=== PATIENT | male | born 1945 | race Caucasian/White ===

== ENCOUNTER → 2018-02-28 09:10 | Outpatient (CLI) | payer MEDICARE, BC, SELFPAY ==
--- NOTE | 2018-02-28 09:03 | DI.REPORT_ITS ---
SYMPTOM/DIAGNOSIS: PAIN LEFT SHOULDER: No priors. There is mild spurring seen at the lateral aspect of the acromion. The glenohumeral joint appears well maintained. The bones are intact and normally mineralized. The soft tissues are unremarkable. IMPRESSION: Mild degenerative changes of the left shoulder
== END ==
PROVIDERS: PCP Family Medicine; Visit Provider Orthopaedic Surgery
DX: M75.82 Other shoulder lesions, left shoulder (principal); M25.512 Pain in left shoulder; M19.012 Primary osteoarthritis, left shoulder
CPT/HCPCS: 73030; 99214

== ENCOUNTER → 2018-03-14 09:45 | Outpatient (CLI) | payer MEDICARE, BC, SELFPAY | PROVIDERS: PCP Family Medicine; Visit Provider Orthopaedic Surgery | DX: M75.81 Other shoulder lesions, right shoulder (principal); M75.82 Other shoulder lesions, left shoulder; M25.512 Pain in left shoulder; M25.511 Pain in right shoulder | CPT/HCPCS: 20610; 99214; J1040 ==

== ENCOUNTER → 2018-04-13 11:11 | Outpatient (BNVA) | payer MEDICARE, BC, SELFPAY | PROVIDERS: PCP Family Medicine; Referring Provider Family Medicine; Visit Provider Orthopaedic Surgery | DX: M25.511 Pain in right shoulder (principal) | CPT/HCPCS: 20610; 99212; J1040 ==

== ENCOUNTER 2018-04-13 12:19 | Outpatient (CLI) | payer MEDICARE, BC, SELFPAY ==
[2018-04-13 12:49] LABS: Abs Immature Grans 0.05 k/cumm (0.0-0.09); Absolute Basophil Count 0.03 k/cumm (0.0-0.2); Absolute Eosinophil Count 0.34 k/cumm (0.0-0.7); Absolute Lymphocyte Count 1.03 k/cumm (1.2-3.4); Absolute Monocyte Count 0.73 k/cumm (0.11-0.7); Absolute Neutrophil Count 5.02 k/cumm (1.2-6.7); Basophils % 0.4; Eosinophils % 4.7; HGB 13.6 g/dL (13.5-17.5); Immature Grans % 0.7; Lymphocytes % 14.3; Mean Corp. HGB Concentration 32.4 g/dL (32.0-36.0); Mean Corpuscular Hemoglobin 27.8 pg (27.0-33.0); Mean Corpuscular Volume 85.9 fL (80-95); Mean Platelet Volume 10.2 fL (8.0-11.0); Monocytes % 10.1; Neutrophils % 69.8; Platelet Count 208 x1000/uL (130-400); RBC 4.89 m/cumm (4.50-6.00); RBC Distribution Width 14.2 % (11.8-14.1)
[2018-04-13 13:23] LABS: ESR 47 MM/HR (1-20)
== END 2018-04-13 12:39 ==
PROVIDERS: PCP Family Medicine; Visit Provider Orthopaedic Surgery
DX: M79.1 Myalgia (principal)
CPT/HCPCS: 20610; 36415; 85652; 99212; 85025; 86140; J1040

== ENCOUNTER 2018-05-19 10:52 | Outpatient (REF) | payer MEDICARE, BC, SELFPAY ==
[2018-05-19 21:18] LABS: ALT 33 U/L (12-78); AST 19 U/L (15-37); Alkaline Phosphatase 132 U/L (46-116); Anion Gap 10.7 mmol/L (3-11); BUN 13 mg/dL (7-18); Bilirubin, Total 0.6 mg/dL (0.2-1.0); C-Reactive Protein 0.64 mg/dL (0.0-0.3); CO2 27.3 mmol/L (21.0-32.0); CREATININE 1.04 mg/dL (0.70-1.30); Calcium 9.4 mg/dL (8.5-10.1); Chloride 102 mmol/L (98-107); Glucose 95 mg/dL (70-100); Potassium 4.5 mmol/L (3.5-5.1); Sodium 140 mmol/L (136-145); Total Protein 7.1 g/dL (6.4-8.2)
[2018-05-19 21:58] LABS: ESR 25 MM/HR (1-20)
[2018-05-22 10:18] LABS: PSA, Screening 7.5 ng/ml (0-6.5)
[2018-05-22 12:21] LABS: Hepatitis C Ab w Rflx HCV PCR Negative (NEGAT)
[2018-05-22 12:56] LABS: Rheumatoid Factor <8 IU/mL (<12.5)
[2018-05-22 13:55] LABS: ANA Interpretation Negative (NEGAT)
[2018-05-23 18:31] LABS: Anaplasma phagocytophilum Negative (Negative); B. miyamotoi PCR Negative (Negative); Babesia divergens/MO-1 Negative (Negative); Babesia duncani Negative (Negative); Babesia microti Negative (Negative); Ehrlichia chaffeensis Negative (Negative); Ehrlichia ewingii/canis Negative (Negative); Ehrlichia muris eauclairensis Negative (Negative)
== END 2018-05-19 11:12 ==
LOC: NCHCN 10:52
PROVIDERS: PCP Family Medicine; Visit Provider Family Medicine
DX: I10 Essential (primary) hypertension (principal); M79.18 Myalgia, other site; Z12.5 Encounter for screening for malignant neoplasm of prostate; Z11.59 Encounter for screening for other viral diseases
CPT/HCPCS: 80053; 84153; 85652; 86803; 86038; 86140; 86431; 87798

== ENCOUNTER 2018-12-08 09:40 | Outpatient (CLI) | payer MEDICARE, BC, SELFPAY ==
[2018-12-08 10:28] LABS: Abs Immature Grans 0.08 k/cumm (0.0-0.09); Absolute Basophil Count 0.02 k/cumm (0.0-0.2); Absolute Lymphocyte Count 0.63 k/cumm (1.2-3.4); Absolute Monocyte Count 0.79 k/cumm (0.11-0.7); Absolute Neutrophil Count 8.75 k/cumm (1.2-6.7); Basophils % 0.2; HCT 44.4 % (40.0-50.0); HGB 14.6 g/dL (13.5-17.5); Immature Grans % 0.8; Lymphocytes % 6.1; Mean Corp. HGB Concentration 32.9 g/dL (32.0-36.0); Mean Corpuscular Hemoglobin 29.9 pg (27.0-33.0); Mean Platelet Volume 10.1 fL (8.0-11.0); Monocytes % 7.6; Neutrophils % 84.3; Platelet Count 171 x1000/uL (130-400); RBC 4.88 m/cumm (4.50-6.00); RBC Distribution Width 13.2 % (11.8-14.1); White Blood Cell Count 10.37 k/cumm (4.4-10.8)
--- NOTE | 2018-12-08 10:31 | DI.RAD_ITS ---
SYMPTOM/DIAGNOSIS: CHEST DISCOMFORT, R07.89, HYPOXIA, R09.02 PA AND LATERAL CHEST: There are no prior comparison exams. The lungs are expiratory and there are increased streaky densities at the lung bases, consistent with atelectasis. The heart size appears normal. The upper lobes appear clear. IMPRESSION: Limited exam due to poor pulmonary inflation. Basilar atelectasis is seen. There is no evidence of pneumothorax.
[2018-12-08 11:12] LABS: NT-proBNP 51 pg/mL
[2018-12-08 11:19] LABS: D-Dimer 477 ng/mlFEU (<500)
== END 2018-12-08 10:00 ==
PROVIDERS: PCP Family Medicine; Visit Provider Nurse Practitioner Family
DX: R07.89 Other chest pain (principal); R06.89 Other abnormalities of breathing; R06.02 Shortness of breath; R06.00 Dyspnea, unspecified; R09.02 Hypoxemia; J98.11 Atelectasis
CPT/HCPCS: 36415; 71046; 83880; 85025; 85379

== ENCOUNTER 2018-12-14 16:08 | Outpatient (CLI) | payer MEDICARE, BC, SELFPAY ==
--- NOTE | 2018-12-14 16:04 | DI.RAD_ITS ---
SYMPTOM/DIAGNOSIS: R06.09, DYSPNEA ON EXERTION PA AND LATERAL CHEST: Comparison is made with 12/08/18. The heart size is within normal limits. The lungs are reasonably well inflated on today's exam. There is mild elevation of the right diaphragm. There is now mild blunting at both costophrenic angles. No infiltrates are seen. There is no evidence of pulmonary edema. There is no pneumothorax or visible rib or spine abnormality. IMPRESSION: Tiny bilateral pleural effusions.
== END 2018-12-14 16:28 ==
PROVIDERS: PCP Family Medicine; Visit Provider Nurse Practitioner Family
DX: R06.09 Other forms of dyspnea (principal); J90 Pleural effusion, not elsewhere classified
CPT/HCPCS: 71046

== ENCOUNTER 2018-12-20 14:13 | Outpatient (CLI) | payer MEDICARE, BC, SELFPAY ==
[2018-12-20 14:52] LABS: HCT 45.1 % (40.0-50.0); HGB 15.1 g/dL (13.5-17.5); Mean Corp. HGB Concentration 33.5 g/dL (32.0-36.0); Mean Corpuscular Hemoglobin 30.1 pg (27.0-33.0); Platelet Count 210 x1000/uL (130-400); RBC 5.01 m/cumm (4.50-6.00); RBC Distribution Width 13.3 % (11.8-14.1); White Blood Cell Count 13.32 k/cumm (4.4-10.8)
[2018-12-20 15:30] LABS: ALT 49 U/L (12-78); AST 19 U/L (15-37); Albumin 3.9 g/dL (3.4-5.0); Alkaline Phosphatase 80 U/L (46-116); BUN 13 mg/dL (7-18); Bilirubin, Total 0.4 mg/dL (0.2-1.0); C-Reactive Protein 0.76 mg/dL (0.0-0.3); Chloride 103 mmol/L (98-107); Glucose 122 mg/dL (70-100); Potassium 4.1 mmol/L (3.5-5.1); Sodium 139 mmol/L (136-145); Total Protein 6.9 g/dL (6.4-8.2)
[2018-12-20 18:28] LABS: ESR 25 MM/HR (1-20)
== END 2018-12-20 14:33 ==
PROVIDERS: PCP Family Medicine; Visit Provider Internal Medicine Rheumatology
DX: M35.3 Polymyalgia rheumatica (principal); Z79.52 Long term (current) use of systemic steroids
CPT/HCPCS: 36415; 80053; 85027; 85652; 86140

== ENCOUNTER 2018-12-25 00:35 | Outpatient (CLI) | payer MEDICARE, BC, SELFPAY ==
--- NOTE | 2018-12-25 08:21 | DI.US_ITS ---
SYMPTOM/DIAGNOSIS: ABD PAIN, R10.9, DYSPNEA ON EXERTION, R06.09 ABDOMINAL ULTRASOUND: The visualized liver parenchyma is normal in appearance. There is no evidence of cholelithiasis. The common bile duct is of normal diameter. The pancreas and spleen appear intact. No renal abnormality is seen. The abdominal aorta is of normal diameter. Normal appearance of IVC. CONCLUSION: Normal abdominal ultrasound.
== END 2018-12-25 00:55 ==
PROVIDERS: PCP Family Medicine; Visit Provider Nurse Practitioner Family
DX: R10.9 Unspecified abdominal pain (principal); R06.09 Other forms of dyspnea
CPT/HCPCS: 76700

== ENCOUNTER 2019-03-12 08:45 | Outpatient (CLI) | payer MEDICARE, BC, SELFPAY | END 2019-03-12 09:05 | PROVIDERS: PCP Family Medicine; Visit Provider Internal Medicine Rheumatology | DX: M35.3 Polymyalgia rheumatica (principal); Z79.52 Long term (current) use of systemic steroids | CPT/HCPCS: 36415; 86140 ==

== ENCOUNTER 2019-06-12 16:00 | Outpatient (REF) | payer MEDICARE, BC, SELFPAY ==
[2019-06-14 11:59] LABS: PSA, Screening 6.8 ng/mL (0.0-6.5)
== END 2019-06-12 16:20 ==
LOC: NCHCN 16:00
PROVIDERS: PCP Family Medicine; Visit Provider Family Medicine
DX: Z12.5 Encounter for screening for malignant neoplasm of prostate (principal)
CPT/HCPCS: 84153

== ENCOUNTER 2019-08-02 09:04 | Outpatient (CLI) | payer MEDICARE, BC, SELFPAY ==
[2019-08-02 10:29] LABS: ALT 41 U/L (16-63); AST 21 U/L (15-37); Alkaline Phosphatase 77 U/L (46-116); Anion Gap 9.9 mmol/L (3-11); BUN 11 mg/dL (7-18); Bilirubin, Total 0.6 mg/dL (0.2-1.0); C-Reactive Protein 0.35 mg/dL (0.0-0.3); CO2 27.1 mmol/L (21.0-32.0); CREATININE 0.96 mg/dL (0.70-1.30); Calcium 8.8 mg/dL (8.5-10.1); Chloride 107 mmol/L (98-107); Glucose 98 mg/dL (74-106); Potassium 3.8 mmol/L (3.5-5.1); Sodium 144 mmol/L (136-145); Total Protein 6.7 g/dL (6.4-8.2)
== END 2019-08-02 09:24 ==
PROVIDERS: PCP Family Medicine; Visit Provider Internal Medicine Rheumatology
DX: M35.3 Polymyalgia rheumatica (principal)
CPT/HCPCS: 36415; 80053; 86140

== ENCOUNTER 2019-08-21 09:02 | Outpatient (CLI) | payer MEDICARE, BC, SELFPAY | END 2019-08-21 09:22 | PROVIDERS: PCP Family Medicine; Visit Provider Internal Medicine Rheumatology | DX: M35.3 Polymyalgia rheumatica (principal) | CPT/HCPCS: 36415; 86140 ==

== ENCOUNTER 2019-09-18 08:36 | Outpatient (CLI) | payer MEDICARE, BC, SELFPAY ==
[2019-09-18 09:53] LABS: C-Reactive Protein 0.45 mg/dL (0.0-0.3)
== END 2019-09-18 08:56 ==
PROVIDERS: PCP Family Medicine; Visit Provider Internal Medicine Rheumatology
DX: M35.3 Polymyalgia rheumatica (principal)
CPT/HCPCS: 36415; 86140

== ENCOUNTER 2019-10-15 09:15 | Outpatient (CLI) | payer MEDICARE, BC, SELFPAY ==
[2019-10-15 09:59] LABS: Absolute Basophil Count 0.03 k/cumm (0.0-0.2); Absolute Eosinophil Count 0.04 k/cumm (0.0-0.7); Absolute Lymphocyte Count 1.03 k/cumm (1.2-3.4); Absolute Monocyte Count 0.69 k/cumm (0.11-0.7); Basophils % 0.2; Eosinophils % 0.3; HGB 15.3 g/dL (13.5-17.5); Immature Grans % 1.4 %; Lymphocytes % 7.3; Mean Corp. HGB Concentration 32.6 g/dL (32.0-36.0); Mean Corpuscular Hemoglobin 29.3 pg (27.0-33.0); Mean Corpuscular Volume 89.9 fL (80-95); Mean Platelet Volume 10.2 fL (8.0-11.0); Monocytes % 4.9; Neutrophils % 85.9; Platelet Count 162 x1000/uL (130-400); RBC 5.23 m/cumm (4.50-6.00); RBC Distribution Width 13.9 % (11.8-14.1); White Blood Cell Count 14.09 k/cumm (4.4-10.8)
[2019-10-15 10:21] LABS: ALT 53 U/L (16-63); AST 22 U/L (15-37); Alkaline Phosphatase 70 U/L (46-116); Anion Gap 10.8 mmol/L (3-11); BUN 14 mg/dL (7-18); Bilirubin, Total 0.5 mg/dL (0.2-1.0); CO2 27.2 mmol/L (21.0-32.0); CREATININE 1.15 mg/dL (0.70-1.30); Calcium 8.7 mg/dL (8.5-10.1); Chloride 104 mmol/L (98-107); Glucose 100 mg/dL (74-106); Potassium 3.9 mmol/L (3.5-5.1); Sodium 142 mmol/L (136-145); Total Protein 6.9 g/dL (6.4-8.2)
== END 2019-10-15 09:35 ==
PROVIDERS: PCP Family Medicine; Visit Provider Internal Medicine Rheumatology
DX: M35.3 Polymyalgia rheumatica (principal); Z79.899 Other long term (current) drug therapy
CPT/HCPCS: 36415; 80053; 85025

== ENCOUNTER 2019-11-28 02:01 | Outpatient (CLI) | payer MEDICARE, BC, SELFPAY ==
[2019-11-28 08:23] LABS: Abs Immature Grans 0.21 k/cumm (0.0-0.09); Absolute Basophil Count 0.03 k/cumm (0.0-0.2); Absolute Eosinophil Count 0.12 k/cumm (0.0-0.7); Absolute Lymphocyte Count 1.16 k/cumm (1.2-3.4); Absolute Monocyte Count 1.05 k/cumm (0.11-0.7); Basophils % 0.2; Eosinophils % 0.9; HCT 43.3 % (40.0-50.0); Immature Grans % 1.6 %; Lymphocytes % 8.9; Mean Corp. HGB Concentration 32.3 g/dL (32.0-36.0); Mean Corpuscular Hemoglobin 29.7 pg (27.0-33.0); Mean Corpuscular Volume 91.7 fL (80-95); Mean Platelet Volume 10.1 fL (8.0-11.0); Monocytes % 8.1; Neutrophils % 80.3; Platelet Count 165 x1000/uL (130-400); RBC 4.72 m/cumm (4.50-6.00); RBC Distribution Width 14.8 % (11.8-14.1); White Blood Cell Count 13.02 k/cumm (4.4-10.8)
[2019-11-28 08:29] LABS: Absolute Neutrophil Count 10.46 k/cumm (1.2-6.7)
[2019-11-28 08:43] LABS: Hemoglobin A1C 5.8 % (3.8-5.6)
[2019-11-28 09:13] LABS: ALT 47 U/L (16-63); AST 19 U/L (15-37); Albumin 3.8 g/dL (3.4-5.0); Alkaline Phosphatase 73 U/L (46-116); BUN 13 mg/dL (7-18); Bilirubin, Total 0.6 mg/dL (0.2-1.0); C-Reactive Protein 0.85 mg/dL (0.0-0.3); CREATININE 1.09 mg/dL (0.70-1.30); Calcium 8.8 mg/dL (8.5-10.1); Chloride 104 mmol/L (98-107); Glucose 95 mg/dL (74-106); Potassium 3.9 mmol/L (3.5-5.1); Sodium 141 mmol/L (136-145); TSH 1.78 uIU/mL (0.36-3.74); Total Protein 6.6 g/dL (6.4-8.2)
== END 2019-11-28 02:21 ==
PROVIDERS: PCP Family Medicine; Visit Provider Internal Medicine Rheumatology
DX: M35.3 Polymyalgia rheumatica (principal); Z79.899 Other long term (current) drug therapy; R53.81 Other malaise; R53.83 Other fatigue; R79.9 Abnormal finding of blood chemistry, unspecified; Z79.52 Long term (current) use of systemic steroids
CPT/HCPCS: 36415; 80053; 83036; 84443; 85025; 85610; 86140

== ENCOUNTER 2019-12-20 01:38 | Outpatient (CLI) | payer MEDICARE, BC, SELFPAY ==
--- NOTE | 2019-12-20 | DI.NM_ITS ---
APPROVED REPORT Exam: Exercise Treadmill Patient Location: Out-Patient Room/Bed: Stress Nurse: Haley Wilder RN BMI: 30.71 Baseline Rhythm: Sinus Rhythm Indications: Dyspnea on exertion. Medical History Medical History: HTN, Hyperlipidemia, PVD Cardiac Medications: Crestor. Aspirin. Amlodipine., Allergies: Penicillins Cardiac Risk Factors: HTN, Hyperlipidemia, PVD Lung Sounds: Clear to auscultation Heart Sounds: Systolic murmur RSB Stress Test Details Test: Exercise stress testing was performed using a Avery protocol. Nuclear Acquisition: Rest Tc-99m/Stress Tc-99m 1 day Rest Isotope: Tc-99m Sestamibi. Dose: 12.0 Date: 12/20/2019 Injection Time: 0845 Stress Isotope: Tc-99m Sestamibi. Dose: 37.0 Date: 12/20/2019 Injection Time: 1020 HR Resting HR Supine: 74 bpm Max Heart Rate (APMHR): 148 bpm Resting HR Standin bpm Target HR (85% APMHR): 125 bpm Max HR Achieved: 148 bpm % of APMHR: 100 Recovery HR: 100 bpm HR response to stress: Normal HR response to stress BP Resting BP Supine: 120/90 mmHg Resting BP Standin/94 mmHg Max BP: 186/70 mmHg Recovery BP: 134/80 mmHg BP response to stress: Normal blood pressure response to stress. ECG Resting ECG: Sinus Rhythm Stress ECG: Sinus Tachycardia ST Change: Normal Maximum ST Deviation: 2.8 mm Arrhythmia: None Recovery ECG: Sinus Rhythm Recovery ST Change: No significant ST segment changes Recovery Arrhythmia: VPC, ventricular couplet and trigeminy noted at 3 and 4 minutes recovery time. Clinical Reason for Termination: Fatigue. 100% target HR achieved. Stress Symptoms: General Fatigue Exercise duration: 2 min29 sec Highest Stage Reached: Stage 1: 1.7 mph at 10% grade. Exercise capacity: 4.46 METs Functional Capacity: Markedly diminished capacity Stress ECG Conclusion 1. Patient exercised for 2 minutes and 30 seconds (4 METS). The patient achieved 100% of maximum pre dicted heart rate. 2. There was no evidence of ischemia on the ECG portion of the exam. Stress Test Summary STAGE Time (mins) Speed (mph) Grade (%) HR BP SYMPTOMS METS Supine 74 120/90 Standing 100 122/94 1 3 1.7 10 148 Unable to safely obtaine a blood pressure. 4.6 1 min recovery 138 186/70 3 min recovery 111 160/84 6 min recovery 103 160/80 9 min recovery 100 134/80 MPI Conclusion Patient's ejection fraction was 66% with stress. There were no wall motion abnormalities. There was no evidence of ischemia on the imaging portion of the exam. This represents a normal SPECT stress test. Radiologist Interpretation Radiologist agrees with Truss Driver Helper's Interpretation. Radiologist Interpretation by: Daisy Pedro MD Interpretation Date/Time: 12/21/2019 13:57:18
== END 2019-12-20 01:58 ==
PROVIDERS: PCP Family Medicine; Visit Provider Family Medicine
DX: R06.09 Other forms of dyspnea (principal); I10 Essential (primary) hypertension; E78.5 Hyperlipidemia, unspecified; R53.83 Other fatigue; I73.9 Peripheral vascular disease, unspecified
CPT/HCPCS: 78452; 93016; 93018; 93017

== ENCOUNTER 2020-03-11 02:49 | Outpatient (CLI) | payer MEDICARE, BC, SELFPAY ==
[2020-03-11 09:03] LABS: C-Reactive Protein 0.46 mg/dL (0.0-0.3)
== END 2020-03-11 03:09 ==
PROVIDERS: PCP Family Medicine; Visit Provider Internal Medicine Rheumatology
DX: M35.3 Polymyalgia rheumatica (principal)
CPT/HCPCS: 36415; 86140

== ENCOUNTER 2020-04-24 04:55 | Outpatient (CLI) | payer MEDICARE, BC, SELFPAY ==
[2020-04-24 08:34] LABS: Abs Immature Grans 0.23 10^3/uL (0.0-0.06); Absolute Basophil Count 0.07 10^3/uL (0.0-0.2); Absolute Eosinophil Count 0.08 10^3/uL (0.0-0.7); Absolute Monocyte Count 0.72 10^3/uL (0.1-0.8); Basophils % 0.6; Eosinophils % 0.7; HCT 43.5 % (40.0-50.0); HGB 14.5 g/dL (13.5-17.5); Immature Grans % 1.9; Lymphocytes % 9.5; MCH 30.5 pg (27.0-33.0); MCHC 33.3 % (32.0-36.0); MCV 91.6 fL (80-95); MPV 10.5 fL (8.0-11.0); Neutrophils % 81.3; Nucleated RBC 0 %; Platelet Count 149 10^3/uL (130-400); RBC 4.75 10^6/uL (4.36-5.78); RDW 13.9 % (11.8-14.1); WBC 12.05 10^3/uL (4.4-10.8)
[2020-04-24 08:38] LABS: Absolute Lymphocyte Count 1.14 10^3/uL (1.2-3.4)
[2020-04-24 09:52] LABS: ALT 41 U/L (16-63); AST 15 U/L (15-37); Albumin 3.7 g/dL (3.4-5.0); Alkaline Phosphatase 72 U/L (46-116); Anion Gap 10.6 mmol/L (3-11); BUN 12 mg/dL (7-18); Bilirubin, Direct 0.14 mg/dL (0.00-0.20); Bilirubin, Total 0.5 mg/dL (0.2-1.0); C-Reactive Protein 0.22 mg/dL (0.0-0.3); CO2 25.4 mmol/L (21.0-32.0); CREATININE 1.05 mg/dL (0.70-1.30); Calcium 8.6 mg/dL (8.5-10.1); Chloride 104 mmol/L (98-107); Glucose 93 mg/dL (74-106); Potassium 3.4 mmol/L (3.5-5.1); Sodium 140 mmol/L (136-145); Total Protein 6.4 g/dL (6.4-8.2)
== END 2020-04-24 05:15 ==
PROVIDERS: PCP Family Medicine; Visit Provider Internal Medicine Rheumatology
DX: M35.3 Polymyalgia rheumatica (principal); Z79.899 Other long term (current) drug therapy
CPT/HCPCS: 36415; 80053; 80076; 85025; 86140

== ENCOUNTER → 2020-05-29 10:45 | Outpatient (BNVA) | payer MEDICARE, BC, SELFPAY | PROVIDERS: PCP Family Medicine; Referring Provider Family Medicine; Visit Provider Student in an Organized Health Care Education/Training Program | DX: M25.511 Pain in right shoulder (principal); S49.91XA Unspecified injury of right shoulder and upper arm, initial encounter; X50.0XXA Overexertion from strenuous movement or load, initial encounter | CPT/HCPCS: 99203; 99214 ==

== ENCOUNTER 2020-07-23 02:56 | Outpatient (CLI) | payer MEDICARE, BC, SELFPAY ==
[2020-07-23 08:25] LABS: Abs Immature Grans 0.17 10^3/uL (0.0-0.06); Absolute Basophil Count 0.07 10^3/uL (0.0-0.2); Absolute Eosinophil Count 0.12 10^3/uL (0.0-0.7); Absolute Lymphocyte Count 1.42 10^3/uL (1.2-3.4); Basophils % 0.6; HCT 43.6 % (40.0-50.0); HGB 14.2 g/dL (13.5-17.5); Immature Grans % 1.5; Lymphocytes % 12.2; MCH 30.3 pg (27.0-33.0); MCHC 32.6 % (32.0-36.0); MCV 93.2 fL (80-95); MPV 10.6 fL (8.0-11.0); Monocytes % 5.8; Neutrophils % 78.9; Nucleated RBC 0 %; Platelet Count 149 10^3/uL (130-400); RBC 4.68 10^6/uL (4.36-5.78); RDW 13.7 % (11.8-14.1); RDW-SD 46.4 fL; WBC 11.65 10^3/uL (4.4-10.8)
[2020-07-23 08:31] LABS: Absolute Monocyte Count 0.68 10^3/uL (0.1-0.8); Absolute Neutrophil Count 9.19 10^3/uL (1.2-6.7)
[2020-07-23 09:40] LABS: ALT 51 U/L (16-63); AST 21 U/L (15-37); Alkaline Phosphatase 74 U/L (46-116); BUN 16 mg/dL (7-18); Bilirubin, Direct 0.15 mg/dL (0.00-0.20); Bilirubin, Total 0.7 mg/dL (0.2-1.0); C-Reactive Protein 0.18 mg/dL (0.0-0.3); CREATININE 1.09 mg/dL (0.70-1.30); Calcium 8.9 mg/dL (8.5-10.1); Chloride 104 mmol/L (98-107); Glucose 88 mg/dL (74-106); Potassium 3.5 mmol/L (3.5-5.1); Sodium 141 mmol/L (136-145); Total Protein 6.5 g/dL (6.4-8.2)
== END 2020-07-23 03:16 ==
PROVIDERS: PCP Family Medicine; Visit Provider Internal Medicine Rheumatology
DX: M35.3 Polymyalgia rheumatica (principal); Z79.899 Other long term (current) drug therapy
CPT/HCPCS: 36415; 80053; 80076; 85025; 86140

== ENCOUNTER 2020-10-24 02:40 | Outpatient (CLI) | payer MEDICARE, BC, SELFPAY ==
[2020-10-24 08:23] LABS: Calculated LDL 76 mg/dL (<100); Cholesterol 168 mg/dL (<200); HDL Cholesterol 70 mg/dL (40-60); Triglyceride 110 mg/dL (<150)
[2020-10-24 11:46] LABS: Abs Immature Grans 0.22 10^3/uL (0.0-0.06); Absolute Basophil Count 0.13 10^3/uL (0.0-0.2); Absolute Eosinophil Count 0.26 10^3/uL (0.0-0.7); Absolute Lymphocyte Count 1.77 10^3/uL (1.2-3.4); Absolute Neutrophil Count 7.76 10^3/uL (1.2-6.7); Basophils % 1.2; Eosinophils % 2.4; HCT 47.1 % (40.0-50.0); HGB 15.1 g/dL (13.5-17.5); Lymphocytes % 16.3; MCH 29.9 pg (27.0-33.0); MCHC 32.1 % (32.0-36.0); MCV 93.3 fL (80-95); MPV 10.6 fL (8.0-11.0); Monocytes % 6.5; Neutrophils % 71.6; Nucleated RBC 0 %; Platelet Count 148 10^3/uL (130-400); RBC 5.05 10^6/uL (4.36-5.78); RDW 13.6 % (11.8-14.1); RDW-SD 45.6 fL; WBC 10.84 10^3/uL (4.4-10.8)
[2020-10-24 11:54] LABS: ALT 50 U/L (16-63); AST 20 U/L (15-37); Alkaline Phosphatase 88 U/L (46-116); BUN 13 mg/dL (7-18); Bilirubin, Total 0.5 mg/dL (0.2-1.0); C-Reactive Protein 0.47 mg/dL (0.0-0.3); CREATININE 1.1 mg/dL (0.70-1.30); Calcium 8.9 mg/dL (8.5-10.1); Chloride 105 mmol/L (98-107); Glucose 89 mg/dL (74-106); Potassium 3.9 mmol/L (3.5-5.1); Sodium 144 mmol/L (136-145)
[2020-10-24 17:36] LABS: PSA, Screening 8.9 ng/mL (0.0-6.5)
== END 2020-10-24 02:41 | disposition home or self-care (01) ==
PROVIDERS: Internal Medicine Rheumatology; PCP Family Medicine; Visit Provider Family Medicine
DX: M35.3 Polymyalgia rheumatica (principal); E78.5 Hyperlipidemia, unspecified; Z12.5 Encounter for screening for malignant neoplasm of prostate
CPT/HCPCS: 36415; 80053; 80061; 84153; 85025; 86140

== ENCOUNTER 2021-02-26 04:42 | Outpatient (CLI) | payer MEDICARE, BC, SELFPAY ==
[2021-02-26 07:25] LABS: Abs Immature Grans 0.19 10^3/uL (0.0-0.06); Absolute Basophil Count 0.09 10^3/uL (0.0-0.2); Absolute Eosinophil Count 0.15 10^3/uL (0.0-0.7); Absolute Monocyte Count 0.73 10^3/uL (0.1-0.8); Absolute Neutrophil Count 7.68 10^3/uL (1.2-6.7); Basophils % 0.8; Eosinophils % 1.4; HCT 43.3 % (40.0-50.0); HGB 13.9 g/dL (13.5-17.5); Immature Grans % 1.8; Lymphocytes % 16.9; MCH 30.4 pg (27.0-33.0); MCHC 32.1 % (32.0-36.0); MCV 94.7 fL (80-95); Monocytes % 6.9; Neutrophils % 72.2; Nucleated RBC 0 %; Platelet Count 145 10^3/uL (130-400); RBC 4.57 10^6/uL (4.36-5.78); RDW 14.1 % (11.8-14.1); RDW-SD 48.5 fL; WBC 10.64 10^3/uL (4.4-10.8)
[2021-02-26 09:04] LABS: ALT 44 U/L (16-63); AST 18 U/L (15-37); Albumin 3.9 g/dL (3.4-5.0); Alkaline Phosphatase 79 U/L (46-116); Anion Gap 10.5 mmol/L (3-11); BUN 12 mg/dL (7-18); Bilirubin, Direct 0.1 mg/dL (0.0-0.2); Bilirubin, Total 0.5 mg/dL (0.2-1.0); C-Reactive Protein 0.56 mg/dL (0.0-0.3); CO2 28.5 mmol/L (21.0-32.0); CREATININE 0.9 mg/dL (0.70-1.30); Calcium 8.6 mg/dL (8.5-10.1); Chloride 106 mmol/L (98-107); Glucose 85 mg/dL (74-106); Potassium 3.9 mmol/L (3.5-5.1); Sodium 145 mmol/L (136-145); Total Protein 6.6 g/dL (6.4-8.2)
[2021-02-26 17:22] LABS: PSA, Diagnostic 8.3 ng/mL (0.0-6.5)
== END 2021-02-26 04:43 | disposition home or self-care (01) ==
LOC: LBO 04:42
PROVIDERS: Urology; PCP Family Medicine; Visit Provider Internal Medicine Rheumatology
DX: M35.3 Polymyalgia rheumatica (principal); R97.20 Elevated prostate specific antigen [PSA]
CPT/HCPCS: 36415; 80053; 80076; 84153; 85025; 86140

== ENCOUNTER 2021-06-03 02:36 | Outpatient (CLI) | payer MEDICARE, BC, SELFPAY ==
[2021-06-03 08:31] LABS: Abs Immature Grans 0.11 10^3/uL (0.0-0.06); Absolute Eosinophil Count 0.14 10^3/uL (0.0-0.7); Absolute Lymphocyte Count 1.35 10^3/uL (1.2-3.4); Absolute Monocyte Count 0.61 10^3/uL (0.1-0.8); Absolute Neutrophil Count 9.64 10^3/uL (1.2-6.7); Basophils % 0.8; Eosinophils % 1.2; HCT 43.5 % (40.0-50.0); HGB 13.9 g/dL (13.5-17.5); Immature Grans % 0.9; Lymphocytes % 11.3; MCH 30.6 pg (27.0-33.0); MCV 95.8 fL (80-95); MPV 10.3 fL (8.0-11.0); Monocytes % 5.1; Neutrophils % 80.7; Nucleated RBC 0 %; Platelet Count 159 10^3/uL (130-400); RBC 4.54 10^6/uL (4.36-5.78); RDW 13.8 % (11.8-14.1); RDW-SD 48.6 fL; WBC 11.94 10^3/uL (4.4-10.8)
[2021-06-03 09:17] LABS: ALT 44 U/L (16-63); AST 19 U/L (15-37); Albumin 3.9 g/dL (3.4-5.0); Alkaline Phosphatase 75 U/L (46-116); BUN 10 mg/dL (7-18); Bilirubin, Total 0.6 mg/dL (0.2-1.0); Calcium 8.6 mg/dL (8.5-10.1); Chloride 106 mmol/L (98-107); Glucose 94 mg/dL (74-106); Potassium 3.7 mmol/L (3.5-5.1); Sodium 144 mmol/L (136-145); Total Protein 6.5 g/dL (6.4-8.2)
[2021-06-03 09:18] LABS: C-Reactive Protein 0.53 mg/dL (0.0-0.3)
== END 2021-06-03 02:37 | disposition home or self-care (01) ==
LOC: LBO 02:36
PROVIDERS: PCP Family Medicine; Visit Provider Internal Medicine Rheumatology
DX: L40.50 Arthropathic psoriasis, unspecified (principal); M35.3 Polymyalgia rheumatica
CPT/HCPCS: 36415; 80053; 85025; 86140

== ENCOUNTER 2021-06-30 08:40 | Outpatient (REF) | payer MEDICARE, BC, SELFPAY ==
[2021-07-01 14:24] LABS: COVID-19 RT-PCR UVMMC Result Negative (Negative)
== END 2021-06-30 08:41 | disposition home or self-care (01) ==
LOC: NCHCN 08:40
PROVIDERS: PCP Family Medicine; Visit Provider Family Medicine
DX: Z20.822 Contact with and (suspected) exposure to COVID-19 (principal); J06.9 Acute upper respiratory infection, unspecified
CPT/HCPCS: U0003; U0005

== ENCOUNTER 2021-09-01 02:08 | Outpatient (CLI) | payer MEDICARE, SELFPAY ==
[2021-09-01 08:25] LABS: Abs Immature Grans 0.13 10^3/uL (0.0-0.06); Absolute Basophil Count 0.08 10^3/uL (0.0-0.2); Absolute Eosinophil Count 0.14 10^3/uL (0.0-0.7); Absolute Lymphocyte Count 1.29 10^3/uL (1.2-3.4); Absolute Monocyte Count 0.58 10^3/uL (0.1-0.8); Absolute Neutrophil Count 8.11 10^3/uL (1.2-6.7); Basophils % 0.8; Eosinophils % 1.4; HCT 45.4 % (40.0-50.0); HGB 14.6 g/dL (13.5-17.5); Immature Grans % 1.3; Lymphocytes % 12.5; MCH 30.2 pg (27.0-33.0); MCHC 32.2 % (32.0-36.0); MPV 10.4 fL (8.0-11.0); Monocytes % 5.6; Neutrophils % 78.4; Nucleated RBC 0 %; Platelet Count 141 10^3/uL (130-400); RBC 4.83 10^6/uL (4.36-5.78); RDW 13.6 % (11.8-14.1); RDW-SD 46.8 fL; WBC 10.33 10^3/uL (4.4-10.8)
[2021-09-01 09:23] LABS: ALT 44 U/L (16-63); AST 21 U/L (15-37); Alkaline Phosphatase 80 U/L (46-116); Anion Gap 11.3 mmol/L (3-11); BUN 14 mg/dL (7-18); Bilirubin, Total 0.7 mg/dL (0.2-1.0); C-Reactive Protein 0.24 mg/dL (0.0-0.3); CO2 26.7 mmol/L (21.0-32.0); Calcium 8.8 mg/dL (8.5-10.1); Chloride 102 mmol/L (98-107); Glucose 92 mg/dL (74-106); Potassium 3.6 mmol/L (3.5-5.1); Sodium 140 mmol/L (136-145); Total Protein 6.7 g/dL (6.4-8.2)
[2021-09-02 09:18] LABS: PSA, Diagnostic 7.8 ng/mL (0.0-6.5)
== END 2021-09-01 02:09 | disposition home or self-care (01) ==
PROVIDERS: PCP Family Medicine; Visit Provider Internal Medicine Rheumatology
DX: L40.59 Other psoriatic arthropathy (principal); Z79.899 Other long term (current) drug therapy; R97.20 Elevated prostate specific antigen [PSA]
CPT/HCPCS: 36415; 80053; 84153; 85025; 86140

== ENCOUNTER 2022-01-15 02:21 | Outpatient (CLI) | payer MEDICARE, SELFPAY ==
[2022-01-15 07:19] LABS: Absolute Basophil Count 0.11 10^3/uL (0.0-0.2); Absolute Eosinophil Count 0.18 10^3/uL (0.0-0.7); Absolute Lymphocyte Count 1.41 10^3/uL (1.2-3.4); Absolute Monocyte Count 0.86 10^3/uL (0.1-0.8); Absolute Neutrophil Count 7.37 10^3/uL (1.2-6.7); Basophils % 1.1; Eosinophils % 1.8; HCT 44.8 % (40.0-50.0); HGB 14.3 g/dL (13.5-17.5); Lymphocytes % 13.9; MCH 30.2 pg (27.0-33.0); MCHC 31.9 % (32.0-36.0); MCV 95 fL (80-95); MPV 10.1 fL (8.0-11.0); Monocytes % 8.5; Neutrophils % 72.7; Platelet Count 155 10^3/uL (130-400); RBC 4.74 10^6/uL (4.36-5.78); RDW-SD 47.8 fL; WBC 10.13 10^3/uL (4.4-10.8)
[2022-01-15 08:26] LABS: ALT 34 U/L (16-63); AST 19 U/L (15-37); Albumin 3.7 g/dL (3.4-5.0); Alkaline Phosphatase 78 U/L (46-116); Anion Gap 9.4 mmol/L (3-11); BUN 10 mg/dL (7-18); Bilirubin, Total 0.4 mg/dL (0.2-1.0); C-Reactive Protein 0.38 mg/dL (0.0-0.3); CO2 27.6 mmol/L (21.0-32.0); Calcium 8.7 mg/dL (8.5-10.1); Chloride 106 mmol/L (98-107); Glucose 100 mg/dL (74-106); Potassium 3.4 mmol/L (3.5-5.1); Sodium 143 mmol/L (136-145); Total Protein 6.7 g/dL (6.4-8.2)
== END 2022-01-15 02:22 | disposition home or self-care (01) ==
LOC: LBO 02:21
PROVIDERS: PCP Family Medicine; Visit Provider Internal Medicine Rheumatology
DX: L40.50 Arthropathic psoriasis, unspecified (principal); Z79.899 Other long term (current) drug therapy
CPT/HCPCS: 36415; 80053; 85025; 86140

== ENCOUNTER 2022-02-23 15:14 | Outpatient (REF) | payer MEDICARE, SELFPAY ==
[2022-02-23 16:23] LABS: HGB 13.7 g/dL (13.5-17.5); MCHC 32.6 % (32.0-36.0); MCV 92 fL (80-95); MPV 11.2 fL (8.0-11.0); Platelet Count 177 10^3/uL (130-400); RBC 4.57 10^6/uL (4.36-5.78); RDW 13.8 % (11.8-14.1); RDW-SD 46.1 fL; WBC 7.74 10^3/uL (4.4-10.8)
[2022-02-23 17:26] LABS: Anion Gap 13.1 mmol/L (3-11); BUN 14 mg/dL (7-18); CO2 22.9 mmol/L (21.0-32.0); Calcium 8.9 mg/dL (8.5-10.1); Calculated LDL 57 mg/dL (<100); Chloride 106 mmol/L (98-107); Cholesterol 134 mg/dL (<200); Glucose 86 mg/dL (74-106); HDL Cholesterol 60 mg/dL (40-60); Potassium 3.7 mmol/L (3.5-5.1); Sodium 142 mmol/L (136-145); Triglyceride 88 mg/dL (<150)
[2022-02-23 17:40] LABS: Creatine Kinase 89 U/L (39-308)
[2022-02-24 18:52] LABS: PSA, Screening 9.4 ng/mL (<=6.5)
== END 2022-02-23 15:15 | disposition home or self-care (01) ==
LOC: NCHCN 15:14
PROVIDERS: PCP Family Medicine; Visit Provider Nurse Practitioner Family
DX: E78.5 Hyperlipidemia, unspecified (principal); R97.20 Elevated prostate specific antigen [PSA]; N40.0 Benign prostatic hyperplasia without lower urinary tract symptoms; Z01.818 Encounter for other preprocedural examination; Z01.812 Encounter for preprocedural laboratory examination; Z12.5 Encounter for screening for malignant neoplasm of prostate
CPT/HCPCS: 80048; 80061; 82550; 84153; 85027

== ENCOUNTER 2022-03-05 07:18 | Day surgery (SDC) | payer MEDICARE, SELFPAY ==
[2022-03-05 08:00] VITALS: BP 131/51; PULSE 93; RESP 16; TEMP 36.6; O2SAT 95
[2022-03-05] MEDS: Tropicam./Phenyleph. (1/2.5%) 5 ML BTL OS ×3 (08:10→08:20)
--- NOTE | 2022-03-05 08:29 | W.ANESPRE ---
General Info Date of Service Date Performed: 03/05/22 Height: 5 ft 9 in Weight: 84.368 kg Body Mass Index (BMI): 27.4 Surgical Procedure: Operation Date: 03/05/22 09:40 Proposed Procedure Side Surgeon p Cataract Extraction with IOL Implant Left Matt Mejia MD Meds Allergies and Home Medications Allergies Allergy/AdvReac Type Severity Reaction Status Date / Time acetaminophen [From Percocet] Allergy Verified 03/05/22 07:53 gemfibrozil [From Lopid] Allergy Verified 03/05/22 07:53 oxycodone [From Percocet] Allergy Verified 03/05/22 07:53 Penicillins Allergy unknown Verified 03/05/22 07:53 Home Medication Medication Instructions Recorded allopurinol 100 mg tablet 100 mg PO DAILY 01/21/16 amlodipine 10 mg tablet 10 mg PO DAILY 01/21/16 aspirin 81 mg chewable tablet 81 mg PO DAILY 01/21/16 (Aspirin Low-Strength) folic acid 1 mg tablet 1 mg PO DAILY 05/29/20 gabapentin 300 mg capsule 300 mg PO QHS PRN 05/29/20 methylprednisolone 4 mg tablet 6 mg PO DAILY 05/29/20 rosuvastatin 5 mg tablet (Crestor) 5 mg PO DAILY 05/29/20 albuterol sulfate 90 mcg/actuation 1 - 2 puff inhalation DIRECTED 03/02/22 aerosol inhaler (ProAir HFA) PRN indomethacin 50 mg capsule 50 mg PO TID PRN 03/02/22 methotrexate sodium 2.5 mg tablet 4 tab PO DIRECTED 03/02/22 terazosin 5 mg capsule 1 cap PO HS 03/02/22 Current Visit Medications: Current Medications Generic Name Dose Route Start Last Admin Trade Name Freq PRN Reason Stop Dose Admin Miscellaneous Medication 0 ml 03/05/22 06:00 Prednisolone 1%, Moxifloxacin 0.5%, Nepafenac 0.1% 5ml Btl OS DIRECTED [facility] Miscellaneous Medication 0 ml 03/05/22 06:00 03/05/22 08:20 Tropicam./Phenyleph. (1/2.5%) 5 Ml Btl OS 1 drp DIRECTED [facility] Administration Tetracaine HCl 0 ml 03/05/22 06:00 Tetracaine 0.5% 4 Ml Btl OS DIRECTED [facility] Medical History Medical History Carotid artery stenosis HLD (hyperlipidemia) HTN (hypertension) Mild carotid artery disease PAD (peripheral artery disease) Psoriatic arthritis Surgical History Surgical History (Updated 03/05/22 @ 07:48 by Lissy Arteaga) History of back surgery 2010 Hx of shoulder surgery Tobacco Smoking/Tobacco Use Status: Never Alcohol Alcohol Intake: current Alcohol intake frequency: holidays/special occasions only Alcohol type: beer Substance Use Substance use type: does not use Vital Signs and Lab Results Vital Signs Most Recent Vital Signs in EMR: Most Recent Vital Signs Temp Pulse Resp BP Pulse Ox 36.6 C 93 H 16 131/51 L 95 03/05/22 08:00 03/05/22 08:00 03/05/22 08:00 03/05/22 08:00 03/05/22 08:00 Lab Results Blood Type / Crossmatch: No Data to Display Complete Blood Count: White Blood Count 7.74 10^3/uL (4.4-10.8) 02/23/22 08:15 Red Blood Count 4.57 10^6/uL (4.36-5.78) 02/23/22 08:15 Hemoglobin 13.7 g/dL (13.5-17.5) 02/23/22 08:15 Hematocrit 42.0 % (40.0-50.0) 02/23/22 08:15 Platelet Count 177 10^3/uL (130-400) 02/23/22 08:15 Complete Metabolic Panel: Sodium Level 142 mmol/L (136-145) 02/23/22 08:15 Potassium Level 3.7 mmol/L (3.5-5.1) 02/23/22 08:15 Chloride Level 106 mmol/L (98-107) 02/23/22 08:15 Carbon Dioxide Level 22.9 mmol/L (21.0-32.0) 02/23/22 08:15 Blood Urea Nitrogen 14 mg/dL (7-18) 02/23/22 08:15 Creatinine 1.0 mg/dL (0.70-1.30) 02/23/22 08:15 Estimated GFR/1.73 m2 >= 60.00 (mL/min/1.73m2) 02/23/22 08:15 Calcium Level 8.9 mg/dL (8.5-10.1) 02/23/22 08:15 Glucose Level 86 mg/dL (74-106) 02/23/22 08:15 Liver Function Panel: No Data to Display Coagulation Panel: No Data to Display Cardiac Panel: Creatine Kinase 89 U/L (39-308) 02/23/22 Arterial Blood Gas: No Data to Display Venous Blood Gas: No Data to Display Pancreas Panel: No Data to Display Thyroid Panel: No Data to Display Infectious Disease: No Data to Display Blood Cultures: No Data to Display Toxicology Panel: No Data to Display Imaging and Studies Imaging and Studies Study information below may be from another EMR and interpreted by another provider. Please see original notes in EMR for more complete details. Stress Test Summary: MPI Conclusion Patient's ejection fraction was 66% with stress. There were no wall motion abnormalities. There was no evidence of ischemia on the imaging portion of the exam. This represents a normal SPECT stress test. 12/20/19 Echocardiogram Summary: Summary: 1. Left ventricle: Systolic function was hyperdynamic. The estimated ejection fraction was 65-70%. During a Valsalva maneuver, there was an increased relative contribution of atrial contraction to ventricular filling. The tissue Doppler parameters were abnormal. Some parameters suggest diastolic dysfunction. There was no evidence of elevated ventricular filling pressure by Doppler parameters. 2. Aortic valve: There was no stenosis. VTI ratio of LVOT to aortic valve: 0.46. Valve area (VTI): 1.4cm^2. 3. Mitral valve: There was mild regurgitation. 4. Right ventricle: The cavity size was normal. Wall thickness was normal. Systolic function was normal. 5. Atrial septum: No defect or patent foramen ovale was identified. 6. Pulmonary arteries: Pulmonary systolic pressure was in the range of 15mm Hg to 25mm Hg. 7. Inferior vena cava: The vessel was normal in size. The respirophasic diameter changes were in the normal range (greater than or equal to 50%), consistent with normal central venous pressure. 12/02/16 Carotid Artery Summary:: CAROTID ULTRASOUND: There is evidence of left internal carotid artery occlusion. Elevated velocities are also noted in the right external carotid artery. There is mild intimal thickening laterally and a prominent plaque is seen in the left carotid bulb and in the right external carotid artery. Bilateral antegrade vertebral flow is identified. 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 Please see the above discussion and the laboratory report for the complete results of this examination. 06/01/17 Anesthesia Assessment and Plan Anesthesia History Personal History: No History of Anesthesia Complications Family History: No Family History of Anesthesia Complications Exercise Tolerance Exercise Tolerance: Metabolic Equivalents<4 Pertinent Negatives Pertinent Negatives: No Major Cardiovascular Symptoms or Complaints and No Major Pulmonary Symptoms or Complaints Cardiac & Pulmonary Exam Cardiac Exam: Normal S1/S2 Heart Sounds Pulmonary Exam: Clear Bilateral Breath Sounds Implantable Cardiac Device Does patient have a Pacemaker or an ICD?: No Airway Exam Known Difficult Airway: No Mallampati Class: 1 Mouth Opening: Normal (> 3cm) Thyromental Distance: Greater than 3 cm Neck Range of Motion: Full ROM Neck Circumference: Normal Teeth Condition: Removable Dentures/Plates Upper and Edentulous ASA Classification ASA Score: ASA 3 Emergency Case?: No NPO Status NPO Status: NPO Clears >2 hours, Solids >8 hours Anesthesia Plan Resuscitation Status: Full Code Anesthesia Technique: MAC Anesthesia Airway Planned: Natural Airway Monitors Used: Standard Monitors Preoperative Comments:: Carotid duplex stable, asymptomatic per Vascular Surgery [place] [facility] [place]
[2022-03-05 08:56] VITALS: BMI 27.4
[2022-03-05] MEDS: Tetracaine 0.5% 4 ML BTL OS (09:10)
[2022-03-05] MEDS: Balanced Salt Soln.-PLUS 500 ML BAG (09:11)
[2022-03-05] MEDS: Lidocaine 2% Jelly 6 ML SYR (09:13)
[2022-03-05] MEDS: Povidone-Iodine Ophth 30 ML BTL (09:15)
--- NOTE | 2022-03-05 09:29 | W.PM.DSUDISC ---
Discharge Plan Disposition Patient Disposition: HOME Condition: Good Discharge Details Attending Provider: Matt Mejia Primary Care Provider: Anu Thakkar V Home Meds and New Rx's Prescriptions: No Action rosuvastatin [Crestor] 5 mg tablet 5 mg PO DAILY gabapentin 300 mg capsule 300 mg PO QHS PRN methylprednisolone 4 mg tablet 6 mg PO DAILY folic acid 1 mg tablet 1 mg PO DAILY allopurinol 100 MG tablet 100 mg PO DAILY Label Comments: 02.28.18 PT IS NOW TAKING 2 CAPS OF 100MG QDAY.HE amlodipine 10 MG tablet 10 mg PO DAILY Label Comments: 02.28.18 PT NOW TAKES 5MG IN AM AND 10 MG AT HS.HE aspirin [Aspirin Low-Strength] 81 MG tablet,chewable 81 mg PO DAILY terazosin 5 mg capsule 1 cap PO HS Label Comments: TAKE 1 CAPSULE BY MOUTH AT BEDTIME IN PLACE OF THE 2 MG CAPLETS methotrexate sodium 2.5 mg tablet 4 tab PO DIRECTED Label Comments: TAKE EIGHT TABLETS BY MOUTH ONCE A WEEK indomethacin 50 mg Capsule 50 mg PO TID PRN albuterol sulfate [ProAir HFA] 90 mcg/actuation Hfa Aerosol Inhaler 1 - 2 puff INHALATION DIRECTED PRN Discharge Instructions Stand Alone Forms: Post-op Topical Cataract, Lorraine Osullivan (DSU) Discharge Orders Discharge Orders: Discharge Order (Routine); Ordered 03/05/22 Ordered By: Matt Mejia DS: Diagnosis Discharge Diagnosis (1) Nuclear sclerotic cataract of left eye: Status: Resolved (2) Posterior subcapsular age-related cataract of left eye: Status: Resolved
[2022-03-05 09:30] VITALS: BP 142/60; PULSE 86; RESP 16; TEMP 36.6; O2SAT 95
--- NOTE | 2022-03-05 09:30 | W.PM.OP ---
Date of service: 03/05/22 Time of Service: 09:30 Operative Note Operative Note DATE OF PROCEDURE: 03/05/22 PRE-OP DIAGNOSIS: Nuclear/posterior subcapsular cataract, left eye Poorly dilating pupil, left eye POST-OP DIAGNOSIS: same PROCEDURE: Cataract extraction by phacoemulsification with intraocular lens implantation, left eye, with pupillary expansion device SURGEON: Matt Mejia ANESTHESIA TYPE: Local By Surgeon and MAC Refer to Anesthesia Record ESTIMATED BLOOD LOSS: 0 PATHOLOGY: none sent COMPLICATIONS: None Patient was transported to: same day Patient's condition: stable Implants: [employer] / [employer] Tecnis [id number] Indications: Progressive decreased vision, left eye Poorly dilating pupil, left eye. Procedure Description: CATARACT SURGERY OPERATIVE REPORT PREOPERATIVE DIAGNOSIS: 1. Nuclear/posterior subcapsular cataract, left eye 2. Poorly dilating pupil, left eye POSTOPERATIVE DIAGNOSIS: Same OPERATION: 1. Cataract extraction using phacoemulsification with posterior chamber intraocular lens implant, left eye. 2. Pupillary dilation and iris stabilization using Malyugin Ring IOL; IOL Surfacer Operator/Model: Alen & Alen / TATA Tecnis [id number] IOL Power: + 23.0 diopters IOL Serial Number: [id number] Optic Diameter: 6.0 mm Haptic/Overall Diameter: 13.00 mm PHACO INFO: Andre ThinkCER[employer]urion Vision System with OZil and Active [employer]uidics Cumulative Dispersed Energy (CDE): 14.76 seconds SURGEON: Matt Mejia MD, YESENIA ANESTHESIA: Monitored Anesthesia Care (MAC), with local sub-tenon's anesthetic infiltration COMPLICATIONS: None SPECIMENS: None INDICATIONS FOR PROCEDURE: Patient is a 76-year-old gentleman with history of diminished visual acuity in his left eye secondary to the development of significant nuclear/posterior subcapsular cataract. The option of cataract surgery was offered to the patient and he felt he was symptomatic enough that he wished to proceed. PROCEDURE: The correct surgical eye was identified and marked as the left eye and the pupil was dilated in the preoperative area using mydriatics, cycloplegics, and NSAIDS (except in aspirin allergic patients). The dilated pupil size was 3.0 mm. The patient elected to proceed without oral sedation. The patient was brought to the operating room where cardiopulmonary monitoring was instituted and surgical time-out was performed, confirming the correct operative eye and IOL power. Topical anesthesia was administered and ophthalmic povidone-iodine 5% was instilled into the conjunctival fornices. Lidocaine gel was applied to the cornea and the burak-ocular area was prepped with Betadine 10% solution and draped in the usual sterile fashion for intraocular surgery, including an aperture drape. A Tegaderm transparent film dressing was cut in half and used to cover the lashes and lid margins. Care was taken to sequester the lashes and lid margins under the Tegaderm dressing. A lid speculum was placed between the lids of the operative eye and the Archana-Phuong operating microscope was maneuvered into position. Uriel scissors were then used to make a conjunctival buttonhole approximately 6mm posterior to the limbus in the inferonasal quadrant. Blunt dissection was carried out to expose bare sclera, and a blunt-tipped sub-tenon?s anesthesia cannula was introduced and passed posteriorly along the globe where non-preserved plain lidocaine was injected into posterior sub-Tenon?s space. A sideport knife was used to make a paracentesis port superiorly/superiortemporally. Intraocular phenylephrine/lidocaine was injected into the anterior chamber. The anterior chamber was then filled with viscoelastic. A keratome knife was used to create a half-thickness groove at the limbus and then to construct a three-plane near-clear corneal tunnel extending 2.0mm into clear cornea at the temporal position. A 6.25 mm Malyugin Ring was then inserted into the pupillary space and engaged with the Kuglen hook. A flap was raised on the anterior capsule and capsulorhexis forceps were used to complete a continuous curvilinear capsulorhexis of 5.5 mm. Balanced salt solution was then used to perform cortical cleaving hydrodissection and nuclear hydrodelineation until the lens could be freely rotated within the capsular bag. The lens nucleus was then disassembled and removed within the capsular bag and iris plane using phacoemulsification. Residual cortical material was removed using the 45-degree angled silicone I/A tip with 0.3mm port. The posterior capsule was carefully polished to remove as much residual lens epithelial cells as safely possible. The capsular bag was then inflated and the anterior chamber deepened with viscoelastic. The lens implant described above was inserted into the capsular bag using the TATA [place] Injector. A Kuglen hook was used to dial the IOL into position. The Malyugin Ring was removed in the reverse order of its insertion. Residual viscoelastic was then removed first from posterior to the IOL, then from the anterior chamber using the I/A handpiece. The lens implant was noted to center nicely within the capsular bag. The incisions were stromally hydrated, and the anterior chamber was reformed using BSS. Then 0.5cc of moxifloxacin 1.0mg/ml were injected into the capsular bag and anterior chamber. The incisions were checked with a Weck spear and found to be secure. Several drops of ophthalmic povidone-iodine 5% were then applied to the eye followed by two drops of Imprimis combination prednisolone/moxifloxacin/nepafenac solution. The drapes were removed and a clear plastic protective eye shield was placed over the eye. The patient was then returned to Same Day Surgery in stable condition.
--- NOTE | 2022-03-05 10:01 | W.ANESPOSTOP ---
Postoperative Evaluation Date, Time and Location Date Performed: 03/05/22 Time Performed: 09:35 Patient Location: Day Surgery Unit Vital Signs Most Recent Imported Vital Signs: Most Recent Vital Signs Temp Pulse Resp BP Pulse Ox 36.6 C 86 16 142/60 H 95 03/05/22 09:30 03/05/22 09:30 03/05/22 09:30 03/05/22 09:30 03/05/22 09:30 Pain Score Most Recent Pain Score: Most Recent Pain Score Pain Level 0 03/05/22 09:30 Assessment Mental Status: Awake (Alert & Oriented to Patient Baseline) Airway and Respiratory Function: Patent airway with normal (patient baseline) respiratory exam Cardiovascular Function: Hemodynamically Stable Hydration Status: Adequately Hydrated Nausea & Vomiting: No Nausea or Vomiting Pain: Pt. Denies Any Pain Peripheral Nerve Block: Patient did not receive a nerve block
== END 2022-03-05 09:52 | disposition home or self-care (01) ==
LOC: SUR 07:18
PROVIDERS: PCP Family Medicine; Visit Provider Ophthalmology
PROC: (CPT 66982; principal; 2022-03-05 09:30)
DX: H25.042 Posterior subcapsular polar age-related cataract, left eye (principal); H57.03 Miosis; I10 Essential (primary) hypertension; E78.5 Hyperlipidemia, unspecified; I73.9 Peripheral vascular disease, unspecified
CPT/HCPCS: 66982; V2632

== ENCOUNTER 2022-03-19 06:55 | Day surgery (SDC) | payer MEDICARE, SELFPAY ==
[2022-03-19] MEDS: Tropicam./Phenyleph. (1/2.5%) 5 ML BTL OD ×3 (07:15→07:29)
[2022-03-19 07:21] VITALS: BP 136/63; PULSE 91; RESP 18; TEMP 36.3; O2SAT 97
--- NOTE | 2022-03-19 07:35 | ANES.PREOP_ITS ---
General Info Date of Service Date Performed: 03/19/22 Height: 5 ft 9 in Weight: 84.3 kg Body Mass Index (BMI): 27.4 Surgical Procedure: Operation Date: 03/19/22 08:40 Proposed Procedure Side Surgeon p Cataract Extraction with IOL Implant Right Matt Mejia MD Meds Allergies and Home Medications Allergies Allergy/AdvReac Type Severity Reaction Status Date / Time gemfibrozil [From Lopid] Allergy Verified 03/19/22 07:18 Penicillins Allergy rash in Verified 03/19/22 07:24 younger years oxycodone [From Percocet] AdvReac Nausea Verified 03/19/22 07:24 Home Medication Medication Instructions Recorded allopurinol 100 mg tablet 100 mg PO DAILY 01/21/16 amlodipine 10 mg tablet 10 mg PO DAILY 01/21/16 aspirin 81 mg chewable tablet 81 mg PO DAILY 01/21/16 (Aspirin Low-Strength) folic acid 1 mg tablet 1 mg PO DAILY 05/29/20 gabapentin 300 mg capsule 300 mg PO QHS PRN 05/29/20 methylprednisolone 4 mg tablet 6 mg PO DAILY 05/29/20 rosuvastatin 5 mg tablet (Crestor) 5 mg PO DAILY 05/29/20 albuterol sulfate 90 mcg/actuation 1 - 2 puff inhalation DIRECTED 03/02/22 aerosol inhaler (ProAir HFA) PRN indomethacin 50 mg capsule 50 mg PO TID PRN 03/02/22 methotrexate sodium 2.5 mg tablet 4 tab PO DIRECTED 03/02/22 terazosin 5 mg capsule 1 cap PO HS 03/02/22 Current Visit Medications: Current Medications Generic Name Dose Route Start Last Admin Trade Name Freq PRN Reason Stop Dose Admin Miscellaneous Medication 0 ml 03/19/22 06:00 Prednisolone 1%, Moxifloxacin 0.5%, Nepafenac 0.1% 5ml Btl OD DIRECTED [facility] Miscellaneous Medication 0 ml 03/19/22 06:00 03/19/22 07:29 Tropicam./Phenyleph. (1/2.5%) 5 Ml Btl OD 1 drp DIRECTED SHWETA Administration Tetracaine HCl 0 ml 03/19/22 06:00 Tetracaine 0.5% 4 Ml Btl OD DIRECTED [facility] PFSH Active Problems Active Problems: Problem Status Onset Code Posterior subcapsular age-related cataract of left eye H25.042 Nuclear sclerotic cataract of left eye H25.12 Medical History Medical History Carotid artery stenosis HLD (hyperlipidemia) HTN (hypertension) Mild carotid artery disease PAD (peripheral artery disease) Psoriatic arthritis Surgical History Surgical History History of back surgery 2011 Hx of shoulder surgery Tobacco Smoking/Tobacco Use Status: Never Alcohol Alcohol Intake: current Alcohol intake frequency: holidays/special occasions only Alcohol type: beer Substance Use Substance use type: does not use Vital Signs and Lab Results Vital Signs Most Recent Vital Signs in EMR: Most Recent Vital Signs Temp Pulse Resp BP Pulse Ox 36.3 C L 91 H 18 136/63 97 03/19/22 07:21 03/19/22 07:21 03/19/22 07:21 03/19/22 07:21 03/19/22 07:21 Lab Results Blood Type / Crossmatch: No Data to Display Complete Blood Count: White Blood Count 7.74 10^3/uL (4.4-10.8) 02/23/22 08:15 Red Blood Count 4.57 10^6/uL (4.36-5.78) 02/23/22 08:15 Hemoglobin 13.7 g/dL (13.5-17.5) 02/23/22 08:15 Hematocrit 42.0 % (40.0-50.0) 02/23/22 08:15 Platelet Count 177 10^3/uL (130-400) 02/23/22 08:15 Complete Metabolic Panel: Sodium Level 142 mmol/L (136-145) 02/23/22 08:15 Potassium Level 3.7 mmol/L (3.5-5.1) 02/23/22 08:15 Chloride Level 106 mmol/L (98-107) 02/23/22 08:15 Carbon Dioxide Level 22.9 mmol/L (21.0-32.0) 02/23/22 08:15 Blood Urea Nitrogen 14 mg/dL (7-18) 02/23/22 08:15 Creatinine 1.0 mg/dL (0.70-1.30) 02/23/22 08:15 Estimated GFR/1.73 m2 >= 60.00 (mL/min/1.73m2) 02/23/22 08:15 Calcium Level 8.9 mg/dL (8.5-10.1) 02/23/22 08:15 Glucose Level 86 mg/dL (74-106) 02/23/22 08:15 Liver Function Panel: No Data to Display Coagulation Panel: No Data to Display Cardiac Panel: Creatine Kinase 89 U/L (39-308) 02/23/22 Arterial Blood Gas: No Data to Display Venous Blood Gas: No Data to Display Pancreas Panel: No Data to Display Thyroid Panel: No Data to Display Infectious Disease: No Data to Display Blood Cultures: No Data to Display Toxicology Panel: No Data to Display Imaging and Studies Imaging and Studies Study information below may be from another EMR and interpreted by another provider. Please see original notes in EMR for more complete details. Stress Test Summary: MPI Conclusion Patient's ejection fraction was 66% with stress. There were no wall motion abnormalities. There was no evidence of ischemia on the imaging portion of the exam. This represents a normal SPECT stress test. 12/20/19 Echocardiogram Summary: Summary: 1. Left ventricle: Systolic function was hyperdynamic. The estimated ejection fraction was 65-70%. During a Valsalva maneuver, there was an increased relative contribution of atrial contraction to ventricular filling. The tissue Doppler parameters were abnormal. Some parameters suggest diastolic dysfunction. There was no evidence of elevated ventricular filling pressure by Doppler parameters. 2. Aortic valve: There was no stenosis. VTI ratio of LVOT to aortic valve: 0.46. Valve area (VTI): 1.4cm^2. 3. Mitral valve: There was mild regurgitation. 4. Right ventricle: The cavity size was normal. Wall thickness was normal. Systolic function was normal. 5. Atrial septum: No defect or patent foramen ovale was identified. 6. Pulmonary arteries: Pulmonary systolic pressure was in the range of 15mm Hg to 25mm Hg. 7. Inferior vena cava: The vessel was normal in size. The respirophasic diameter changes were in the normal range (greater than or equal to 50%), consistent with normal central venous pressure. 12/02/16 Carotid Artery Summary:: CAROTID ULTRASOUND: There is evidence of left internal carotid artery occlusion. Elevated velocities are also noted in the right external carotid artery. There is mild intimal thickening laterally and a prominent plaque is seen in the left carotid bulb and in the right external carotid artery. Bilateral antegrade vertebral flow is identified. 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 Please see the above discussion and the laboratory report for the complete results of this examination. 06/01/17 Anesthesia Assessment and Plan Anesthesia History Personal History: No History of Anesthesia Complications Family History: No Family History of Anesthesia Complications Exercise Tolerance Exercise Tolerance: Metabolic Equivalents<4 Pertinent Negatives Pertinent Negatives: No Symptoms of GERD Cardiac & Pulmonary Exam Cardiac Exam: Normal S1/S2 Heart Sounds Pulmonary Exam: Clear Bilateral Breath Sounds Implantable Cardiac Device Does patient have a Pacemaker or an ICD?: No Airway Exam Known Difficult Airway: No Mallampati Class: 1 Mouth Opening: Normal (> 3cm) Thyromental Distance: Greater than 3 cm Neck Range of Motion: Full ROM Neck Circumference: Normal Teeth Condition: Removable Dentures/Plates Upper and Edentulous ASA Classification ASA Score: ASA 2 Emergency Case?: No NPO Status NPO Status: NPO Clears >2 hours, Solids >8 hours Anesthesia Plan Resuscitation Status: Full Code Anesthesia Technique: MAC Anesthesia Airway Planned: Natural Airway Monitors Used: Standard Monitors
[2022-03-19 07:57] VITALS: BMI 27.4
[2022-03-19] MEDS: Tetracaine 0.5% 4 ML BTL OD (08:14)
[2022-03-19] MEDS: Lidocaine 2% Jelly 6 ML SYR (08:15)
[2022-03-19] MEDS: Povidone-Iodine Ophth 30 ML BTL (08:16)
[2022-03-19] MEDS: Balanced Salt Soln.-PLUS 500 ML BAG (08:20)
[2022-03-19 08:43] VITALS: BP 119/75; PULSE 80; RESP 16; TEMP 36.5; O2SAT 96
--- NOTE | 2022-03-19 08:43 | W.PM.DSUDISC ---
Discharge Plan Disposition Patient Disposition: HOME Condition: Good Discharge Details Attending Provider: Matt Mejia Primary Care Provider: Anu Thakkar V Home Meds and New Rx's Prescriptions: No Action rosuvastatin [Crestor] 5 mg tablet 5 mg PO DAILY gabapentin 300 mg capsule 300 mg PO QHS PRN methylprednisolone 4 mg tablet 6 mg PO DAILY folic acid 1 mg tablet 1 mg PO DAILY allopurinol 100 MG tablet 100 mg PO DAILY Label Comments: 02.28.18 PT IS NOW TAKING 2 CAPS OF 100MG QDAY.HE amlodipine 10 MG tablet 10 mg PO DAILY Label Comments: 02.28.18 PT NOW TAKES 5MG IN AM AND 10 MG AT HS.HE aspirin [Aspirin Low-Strength] 81 MG tablet,chewable 81 mg PO DAILY terazosin 5 mg capsule 1 cap PO HS Label Comments: TAKE 1 CAPSULE BY MOUTH AT BEDTIME IN PLACE OF THE 2 MG CAPLETS methotrexate sodium 2.5 mg tablet 4 tab PO DIRECTED Label Comments: TAKE EIGHT TABLETS BY MOUTH ONCE A WEEK indomethacin 50 mg Capsule 50 mg PO TID PRN albuterol sulfate [ProAir HFA] 90 mcg/actuation Hfa Aerosol Inhaler 1 - 2 puff INHALATION DIRECTED PRN Discharge Instructions Stand Alone Forms: Post-op Topical Cataract, Lorraine Osullivan (DSU) Discharge Orders Discharge Orders: Discharge Order (Routine); Ordered 03/19/22 Ordered By: Matt Mejia DS: Diagnosis Discharge Diagnosis (1) Nuclear sclerotic cataract of right eye: Status: Resolved (2) Posterior subcapsular age-related cataract, right eye: Status: Resolved
--- NOTE | 2022-03-19 08:45 | W.PM.OP ---
Date of service: 03/19/22 Time of Service: 08:45 Operative Note Operative Note PRE-OP DIAGNOSIS: Nuclear/posterior subcapsular cataract, right eye Poorly dilating pupil, right eye POST-OP DIAGNOSIS: same PROCEDURE: 1. Cataract extraction by phacoemulsification with intraocular lens implantation, right eye, with pupillary expansion device SURGEON: Matt Mejia ANESTHESIA TYPE: Local By Surgeon and MAC Refer to Anesthesia Record PATHOLOGY: none sent COMPLICATIONS: None Patient was transported to: same day Patient's condition: stable Implants: [employer] / [employer] Tecnis [id number] Indications: Progressive decreased vision due to cataract, right eye, with poorly dilating pupil Procedure Description: CATARACT SURGERY OPERATIVE REPORT PREOPERATIVE DIAGNOSIS: 1. Nuclear/posterior subcapsular cataract, right eye 2. Poorly dilating pupil, right eye POSTOPERATIVE DIAGNOSIS: Same OPERATION: 1. Cataract extraction using phacoemulsification with posterior chamber intraocular lens implant, right eye. 2. Pupillary dilation and iris stabilization using Malyugin Ring IOL: IOL Agency Cashier/Model: Alen & Alen / TATA Tecnis [id number] IOL Power: + 23.5 diopters IOL Serial Number: [id number] Optic Diameter: 6.0mm Haptic/Overall Diameter: 13.0mm PHACO INFO: Andre [employer]urion Vision System with OZil and [employer] Cumulative Dispersed Energy (CDE): 14.85 seconds SURGEON: Matt Mejia MD, YESENIA ANESTHESIA: Monitored Anesthesia Care (MAC), with local sub-tenon's anesthetic infiltration COMPLICATIONS: None SPECIMENS: None INDICATIONS FOR PROCEDURE: Patient is a 76-year-old gentleman with history of diminished visual acuity in both eyes secondary to the development of bilateral nuclear/posterior subcapsular cataract. He has already undergone cataract surgery in the left eye and is doing well postoperatively. He now presents for cataract surgery in the right eye. PROCEDURE: The correct surgical eye was identified and marked as the right eye and the pupil was dilated in the preoperative area using mydriatics and cycloplegics. The dilated pupil size was 3.5 mm. The patient was brought to the operating room where cardiopulmonary monitoring was instituted and surgical time-out was performed, confirming the correct operative eye and IOL power. Topical anesthesia was administered and ophthalmic povidone-iodine 5% was instilled into the conjunctival fornices. Lidocaine gel was applied to the cornea and the burak-ocular area was prepped with Betadine 10% solution and draped in the usual sterile fashion for intraocular surgery, including an aperture drape. A Tegaderm transparent film dressing was cut in half and used to cover the lashes and lid margins. Care was taken to sequester the lashes and lid margins under the Tegaderm dressing. A lid speculum was placed between the lids of the operative eye and the Andre Lux[employer] Revalia operating microscope was maneuvered into position. Uriel scissors were then used to make a conjunctival buttonhole approximately 6mm posterior to the limbus in the inferonasal quadrant. Blunt dissection was carried out to expose bare sclera, and a blunt-tipped sub-tenon?s anesthesia cannula was introduced and passed posteriorly along the globe where non-preserved plain lidocaine was injected into posterior sub-Tenon?s space. A sideport knife was used to make a paracentesis port inferiortemporally. Intraocular phenylephrine/lidocaine was injected in the anterior chamber. The anterior chamber was filled with viscoelastic. A keratome knife was used to construct a 2-plane near-clear corneal tunnel extending 2.0mm into clear cornea superiortemporally. A 6.25 mm Malyugin Ring was then inserted into the pupillary space and engaged with the Kuglen hook. A flap was raised on the anterior capsule and capsulorhexis forceps were used to complete a continuous curvilinear capsulorhexis of 5.0 mm. Balanced salt solution was then used to perform cortical cleaving hydrodissection and nuclear hydrodelineation until the lens could be freely rotated within the capsular bag. The lens nucleus was then disassembled and removed within the capsular bag and iris plane using phacoemulsification. Residual cortical material was removed using the 45-degree angled silicone I/A tip with 0.3mm port. The posterior capsule was carefully polished to remove as much residual lens epithelial cells as safely possible. The capsular bag was then inflated and the anterior chamber deepened with viscoelastic. The lens implant described above was inserted into the capsular bag using the TATA Thayer Injector. A Kuglen hook was used to dial the IOL into position. The Malyugin Ring was removed in the reverse order of its insertion. Residual viscoelastic was then removed first from posterior to the IOL, then from the anterior chamber using the I/A handpiece. The lens implant was noted to center nicely within the capsular bag. The incisions were stromally hydrated, and the anterior chamber was reformed using BSS. Then 0.5cc of moxifloxacin 1.0mg/ml were injected into the capsular bag and anterior chamber. The incisions were checked with a Weck spear and found to be secure. Several drops of ophthalmic povidone-iodine 5% were then applied to the eye followed by two drops of Imprimis combination prednisolone/moxifloxacin/nepafenac solution. The drapes were removed and a clear plastic protective eye shield was placed over the eye. The patient was then returned to Same Day Surgery in stable condition.
--- NOTE | 2022-03-19 08:55 | W.ANESPOSTOP ---
Postoperative Evaluation Date, Time and Location Date Performed: 03/19/22 Time Performed: 14:45 Patient Location: Day Surgery Unit Vital Signs Most Recent Imported Vital Signs: Most Recent Vital Signs Temp Pulse Resp BP Pulse Ox 36.3 C L 91 H 18 136/63 97 03/19/22 07:21 03/19/22 07:21 03/19/22 07:21 03/19/22 07:21 03/19/22 07:21 Most Recent Manually Entered Vital Signs: Adult Blood Pressure: 128/72 Heart Rate: 81 Respirations: 12 Oxygen Saturation (%): 100 Temperature (C): 36.3 C Pain Score (0-10 Scale): 0 Pain Score Most Recent Pain Score: Most Recent Pain Score Pain Level 7 03/19/22 07:21 Assessment Mental Status: Awake (Alert & Oriented to Patient Baseline) Airway and Respiratory Function: Patent airway with normal (patient baseline) respiratory exam Cardiovascular Function: Hemodynamically Stable Hydration Status: Adequately Hydrated Nausea & Vomiting: No Nausea or Vomiting Pain: Pt. Denies Any Pain Peripheral Nerve Block: Patient did not receive a nerve block
[2022-03-21 23:34] VITALS: BP 128/72; PULSE 81; RESP 12; TEMPC 36.3; O2SAT 100
== END 2022-03-19 09:05 | disposition home or self-care (01) ==
PROVIDERS: PCP Family Medicine; Visit Provider Ophthalmology
PROC: (CPT 66982; principal; 2022-03-19 08:30)
DX: H25.041 Posterior subcapsular polar age-related cataract, right eye (principal); I10 Essential (primary) hypertension; E78.5 Hyperlipidemia, unspecified; I73.9 Peripheral vascular disease, unspecified; H57.03 Miosis
CPT/HCPCS: 66982; V2632

== ENCOUNTER 2022-06-11 01:30 | Outpatient (CLI) | payer MEDICARE, SELFPAY ==
[2022-06-11 10:01] LABS: Estimated GFR 78.98 (mL/min/1.73m2)
== END 2022-06-11 01:31 | disposition home or self-care (01) ==
LOC: LBO 01:30
PROVIDERS: PCP Family Medicine; Visit Provider Surgery Vascular Surgery
DX: I70.213 Atherosclerosis of native arteries of extremities with intermittent claudication, bilateral legs (principal)
CPT/HCPCS: 36415; 82565

== ENCOUNTER 2022-07-06 14:04 | Inpatient (IN) | payer MEDICARE, SELFPAY ==
[2022-07-06] VITALS (91 sets, daily range): BP systolic 109–150; BP diastolic 46–98; PULSE 69–106; RESP 12–31; TEMP 36.6; O2SAT 87–99
--- NOTE | 2022-07-06 14:15 | RT.EKG_ITS ---
APPROVED REPORT Exam: Resting ECG Reason for Exam: sob Patient Location: E HR:102 bpm ECG Measurements Heart Rate 102 AXIS SD 159 P 34 QRSd 91 QRS 30 QT 375 T 33 QTc 489 Conclusion Sinus tachycardia...rate> 99
--- NOTE | 2022-07-06 14:30 | DI.CT_ITS ---
Exam(s) CT CHEST PE CTA EXAM: CT CHEST PE CTA CLINICAL HISTORY: chest pain and dyspnea. TECHNIQUE: Imaging Protocol: Axial CT angiography was performed with multi-slice acquisition and mu lti-planar and/or 3D reconstructions. CONTRAST MATERIAL: Intravenous: Omnipaque 350 contrast volume:100 mL COMPARISON: CR XR CHEST 2V PA LATERAL from 12/14/2018 US US ABDOMEN from 12/25/2018 FINDINGS: The examination is limited due to patient motion artifact. Tracheobronchial tree: Patent where visualized. Pulmonary parenchyma: No consolidation or dominant measurable mass. No architectural distortion. Pulmonary Arteries: No evidence of filling defect to suggest pulmonary emboli. Mediastinum and [place]: No dominant adenopathy or fluid collection. The esophagus is unremarkable. Sm all hiatal hernia. Visualized thyroid gland: Unremarkable. Pleura: No effusion or pneumothorax. Heart: The heart is not dilated. Coronary artery calcification is present. No pericardial effusion. Aorta: Thoracic aorta non-dilated. No evidence of dissection. Atherosclerosis is present. Upper abdomen: There is a 1.7 cm hypodense round lesion in the left lobe of the liver. Soft tissues: Unremarkable. Bones: Within normal limits for the patient's age. IMPRESSION: 1. No evidence of pulmonary embolism, thoracic aortic dissection or aneurysm. 2. 1.7 cm hypodense lesion in the left lobe of the liver. This is nonspecific on this examination. Correlation with the an abdominal ultrasound or dedicated CT scan of the abdomen without and with con trast should be considered. 3. Findings were discussed with Dr. Xavier of the emergency department at 4:07 p.m. on 07/06/2022. RADIATION DOSE DELIVERED: 449.27mGy.cm Total DLP DATA REPOSITORY: All CT scans at this facility are submitted to the National Radiology Data Registry (NRDR) Dose Index Registry (DIR) with the [employer] (A[employer]). RADIATION OPTIMIZATION: All CT scans at this facility use at least one of these dose optimization te chniques: automated exposure control; mA and/or kV adjustment per patient size (includes targeted exa ms where dose is matched to clinical indication); or iterative reconstruction.
--- NOTE | 2022-07-06 14:33 | W.ED.GENAD ---
Discharge Plan Disposition Patient Disposition: Admit to [facility] Condition: Serious Discharge Details Chief Complaint: Chest Pain Clinical Impression: Non-ST elevation OK (NSTEMI) Primary Care Provider: Anu Thakkar V ED Provider: Terrence Xavier Home Meds and New Rx's Prescriptions: No Action rosuvastatin [Crestor] 5 mg tablet 5 mg PO DAILY gabapentin 300 mg capsule 300 mg PO QHS PRN methylprednisolone 4 mg tablet 6 mg PO DAILY folic acid 1 mg tablet 1 mg PO DAILY allopurinol 100 MG tablet 100 mg PO DAILY Label Comments: 02.28.18 PT IS NOW TAKING 2 CAPS OF 100MG QDAY.HE amlodipine 10 MG tablet 10 mg PO DAILY Label Comments: 02.28.18 PT NOW TAKES 5MG IN AM AND 10 MG AT HS.HE aspirin [Aspirin Low-Strength] 81 MG tablet,chewable 81 mg PO DAILY terazosin 5 mg capsule 1 cap PO HS Label Comments: TAKE 1 CAPSULE BY MOUTH AT BEDTIME IN PLACE OF THE 2 MG CAPLETS methotrexate sodium 2.5 mg tablet 4 tab PO DIRECTED Label Comments: TAKE EIGHT TABLETS BY MOUTH ONCE A WEEK indomethacin 50 mg Capsule 50 mg PO TID PRN albuterol sulfate [ProAir HFA] 90 mcg/actuation Hfa Aerosol Inhaler 1 - 2 puff INHALATION DIRECTED PRN acetaminophen [Tylenol Extra Strength] 500 mg tablet 500 tab PO PRN PRN Label Comments: Take 2 tablet by mouth once a day as needed for pain Medical Decision Making 76 yo male with hx of PAD, PmR, htn, hld, no prior OK or heart related issues per patient, comes in with an episode of chest pressure last night around 930pm when he was getting ready to go to bed. He states he felt well all day prior to this, no fevers, chills, n/v. He states he had chest pressure that was nonradiating, no diaphoresis and went away after 30 minutes. He had some shortness of breath since then. He has no symptoms since the episode last night, walking without any dyspnea or chest pain. He arrives stable speaking in full sentences. He has clear lungs, no murmurs, no jvd, no leg swelling or calf tenderness. Will obtain ecg, troponin, cbc, cmp, and also cta of the chest for pe given he is mildly tachycardic at 104 during my exam in sinus. He has no tearing back pain to suggest dissection. Given brevity of symptoms could have been esophageal spasm but will evaluate for more serious pathology. pt stable, still no having chest pain, cta negative other than likely liver cyst which he was informed of and advised he will need f/u with pcp for this. His troponin is over 4500 so likely had an OK last night, heparin and asa ordered, will discuss with [place] [facility] but can't take tonight he is on their list for transfer currently and state they should be able to take him by . HE is stable, will discuss with hospitalist about admission here until transfer can take place. will add plavix, metoprolol and atorvastatin per cardiology recs Differential Diagnosis Differential Diagnosis: esophageal spasm, nstemi, pe Medical Records Medical records reviewed: Yes I reviewed the patient's medical records. Imaging Data Radiologic Study: Attestation: I personally reviewed and interpreted this imaging study as follows: Imaging: CT Scan Radiologist's impression: IMPRESSION: 1. No evidence of pulmonary embolism, thoracic aortic dissection or aneurysm.? 2. 1.7 cm hypodense lesion in the left lobe of the liver.? This is nonspecific on this examination.? Correlation with the an abdominal ultrasound or dedicated CT scan of the abdomen without and with contrast should be considered. 3. Findings were discussed with Dr. Xavier of the emergency department at 4:07 p.m. on 07/06/2022. Lab Data Lab results reviewed: Yes I reviewed the patient's lab results. ECG Data Attestation: I personally reviewed and interpreted this ECG (s) as follows: Prior ECG tracings: not available for review Interpretation: sinus tachycardia, rate of 102, pr 159, no stemi Sign Out No HPI General Mode of arrival: ambulatory. Date/Time Provider Initiated Documentation: 07/06/22 14:05. Limitations to Documentation: no limitations. Information obtained by: patient. History of Present Illness 76 year old M presents to the emergency department with the chief complaint of chest pain, described as moderate, Quality is described as other (pressure), and is localized to the chest. Patient reports no radiation. Patient started experiencing this hour(s) (17) and it has been now resolved. No relieving factors improve symptom(s), No exacerbating factors reported . Patient notes shortness of breath. Patient did receive the following treatments prior to arrival, none Related Data Home Medications Medication Instructions Recorded Confirmed allopurinol 100 mg tablet 100 mg PO DAILY 01/21/16 07/06/22 amlodipine 10 mg tablet 10 mg PO DAILY 01/21/16 07/06/22 aspirin 81 mg chewable tablet 81 mg PO DAILY 01/21/16 07/06/22 (Aspirin Low-Strength) folic acid 1 mg tablet 1 mg PO DAILY 05/29/20 07/06/22 gabapentin 300 mg capsule 300 mg PO QHS PRN 05/29/20 07/06/22 methylprednisolone 4 mg tablet 6 mg PO DAILY 05/29/20 07/06/22 rosuvastatin 5 mg tablet (Crestor) 5 mg PO DAILY 05/29/20 07/06/22 albuterol sulfate 90 mcg/actuation 1 - 2 puff inhalation DIRECTED 03/02/22 07/06/22 aerosol inhaler (ProAir HFA) PRN indomethacin 50 mg capsule 50 mg PO TID PRN 03/02/22 07/06/22 methotrexate sodium 2.5 mg tablet 4 tab PO DIRECTED 03/02/22 07/06/22 terazosin 5 mg capsule 1 cap PO HS 03/02/22 07/06/22 acetaminophen 500 mg tablet 500 tab PO PRN PRN 07/06/22 07/06/22 (Tylenol Extra Strength) Allergies Allergy/AdvReac Type Severity Reaction Status Date / Time gemfibrozil [From Lopid] Allergy Verified 07/06/22 18:31 Penicillins Allergy rash in Verified 07/06/22 18:31 younger years oxycodone [From Percocet] AdvReac Nausea Verified 07/06/22 18:31 General Stated Complaint: Chest Pain [place]: 3 Review of Systems All systems reviewed & are unremarkable except as noted in HPI and below Constitutional Constitutional: Denies chills, Denies fever(s) and Denies weakness Respiratory Respiratory: Denies cough Gastrointestinal Gastrointestinal: Denies abdominal pain, Denies nausea and Denies vomiting Genitourinary Genitourinary: Denies dysuria Integumentary/Breasts Skin/Breast: Denies rash Neurologic Neurologic: Denies weakness PFSH All Active Problems (Updated 07/06/22 @ 18:36 by Terrence Xavire MD) Non-ST elevation OK (NSTEMI) (Acute) Medical History Carotid artery stenosis HLD (hyperlipidemia) HTN (hypertension) Mild carotid artery disease PAD (peripheral artery disease) Psoriatic arthritis Surgical History History of back surgery 2010 Hx of shoulder surgery Social History Smoking/Tobacco Use Status: Never Smoking risk assessment performed?: Yes Alcohol Intake: current Alcohol Intake frequency: holidays/special occasions only Alcohol type: beer Drug use: Never Substance use type: does not use Do you feel safe at home: Yes Do you feel safe in your relationship?: Yes Additional Social history: unable to assess privately Exam Const General: no acute distress Orientation: alert HENMT Head: normal to inspection Ears: external ears normal General nose exam: external nose normal Mouth: moist mucous membranes Eyes General: appearance normal, both eyes and all related structures Neck Neck: normal visual inspection Resp Effort & Inspection: normal respiratory effort and able to speak in complete sentences Auscultation: clear to auscultation bilaterally Cardio Jugular venous pressure: no JVD Rate: regular rate Heart Sounds: no murmurs GI Palpation: soft and nontender Skin General skin exam: no rashes or lesions noted Neuro General: patient alert and patient oriented x3 Extrem General: normal to inspection Psych Mental Status: mental status grossly normal Course Vital Signs Vital signs: Vital Signs Temperature 36.6 C 07/06/22 14:12 Pulse 104 H 07/06/22 14:12 Respiratory Rate 18 07/06/22 14:12 Blood Pressure 112/97 H 07/06/22 14:12 Pulse Oximetry 95 07/06/22 14:12 Temperature 36.6 C 07/06/22 14:12 Temperature Source Oral 07/06/22 14:12 Pulse 104 H 07/06/22 14:12 Respiratory Rate 18 07/06/22 14:17 Respiratory Effort Non-Labored 07/06/22 14:17 Respiratory Depth Normal 07/06/22 14:17 Respiratory Pattern Normal 07/06/22 14:17 Blood Pressure 112/97 H 07/06/22 14:12 Blood Pressure Position Sitting 07/06/22 14:12 Pulse Oximetry 95 07/06/22 14:12 Oxygen Delivery Method Room Air 07/06/22 14:12 Oxygen Flow Rate 0 07/06/22 14:12 Pain Level 0 07/06/22 14:12
[2022-07-06 14:48] LABS: Abs Immature Grans 0.08 10^3/uL (0.0-0.06); Absolute Basophil Count 0.04 10^3/uL (0.0-0.2); Absolute Lymphocyte Count 0.28 10^3/uL (1.2-3.4); Absolute Monocyte Count 0.81 10^3/uL (0.1-0.8); Absolute Neutrophil Count 5.53 10^3/uL (1.2-6.7); Basophils % 0.6; HCT 40.8 % (40.0-50.0); HGB 13.8 g/dL (13.5-17.5); Immature Grans % 1.2; Lymphocytes % 4.2; MCH 30.9 pg (27.0-33.0); MCHC 33.8 % (32.0-36.0); MCV 91 fL (80-95); Platelet Count 154 10^3/uL (130-400); RBC 4.47 10^6/uL (4.36-5.78); RDW 14.5 % (11.8-14.1); RDW-SD 48.3 fL; WBC 6.74 10^3/uL (4.4-10.8)
[2022-07-06 15:16] LABS: ALT 44 U/L (16-63); AST 49 U/L (15-37); Albumin 3.8 g/dL (3.4-5.0); Alkaline Phosphatase 87 U/L (46-116); BUN 16 mg/dL (7-18); Bilirubin, Total 0.6 mg/dL (0.2-1.0); CREATININE 1.3 mg/dL (0.70-1.30); Calcium 8.7 mg/dL (8.5-10.1); Chloride 100 mmol/L (98-107); Estimated GFR 57.65 (mL/min/1.73m2); Glucose 140 mg/dL (74-106); Lipase 83 U/L (73-393); Magnesium 2.2 mg/dL (1.8-2.4); Potassium 3.5 mmol/L (3.5-5.1); Sodium 135 mmol/L (136-145); Total Protein 7.1 g/dL (6.4-8.2)
[2022-07-06 15:18] LABS: Troponin I 4533 ng/L (<or=60)
[2022-07-06] MEDS: Omnipaque 350 MG/ML 100 ML BTL IJ (15:29)
[2022-07-06] MEDS: Normal Saline - Diluent 50 ML VIAL IJ (15:30)
[2022-07-06] MEDS: Aspirin 325 MG TAB PO (15:32)
[2022-07-06 16:17] LABS: INR 1.1 (0.9-1.1); PTT Activated 28.1 sec (21.0-27.5); Prothrombin Time 11.3 sec (9.3-11.0)
[2022-07-06 17:33] LABS: Source Nasal/Nares
[2022-07-06] MEDS: Clopidogrel 300 MG TAB PO (17:46)
[2022-07-06] MEDS: Atorvastatin 40 MG TAB 80 MG PO (17:47)
[2022-07-06] MEDS: Metoprolol 12.5 MG TAB PO (17:47)
[2022-07-06 18:06] LABS: Troponin I 4590 ng/L (<or=60)
[2022-07-06 18:25] LABS: COVID-19 PCR Negative (Negative)
--- NOTE | 2022-07-06 19:36 | HPE_ITS ---
Date of service: 07/06/22 Time of Service: 19:36 Assessment and Plan Assessment and plan (1) Non-ST elevation ME (NSTEMI): Start date: 07/06/22 Status: Acute Assessment and plan: This is a 76-year-old gentleman with an episode of resting chest pain and signif icant dizziness with fall prior to presentation to the ED having positive troponins over 4000 and an apparent non-STEMI. He is pain-free with IV heparin initiated and low-dose metoprolol holding or adjusting his other antihypertensive while in the hospital. He also was loaded with aspirin and Plavix and will continue both daily. He was placed on high-dose atorvastatin 80 mg daily instead of Crestor. He has been [place] [facility] [place] and evaluation with probable cardiac catheterization awaiting bed availability. He is a full code. Presently he is pain-free and comfortable without respiratory symptoms. (2) HTN (hypertension): Assessment and plan: Adjust usual outpatient medical therapy or hold while initiating low-dose beta- monico which can be adjusted upward for blood pressure control without the amlodipine. (3) HLD (hyperlipidemia): Assessment and plan: Hold Crestor and use atorvastatin 80 mg daily. (4) PAD (peripheral artery disease): Assessment and plan: Continue antiplatelet therapy with addition of Plavix now to aspirin. (5) Psoriatic arthritis: Assessment and plan: Patient is currently on methotrexate with folic acid but also methylprednisolone for presumed PMR. Continue folic acid but methotrexate is only weekly and continue low-dose methylprednisolone for now. History of Present Illness History of Present Illness Chief Complaint: Chest pain Narrative: This is a 72-year-old male patient who has a history of PVD but no previous cardiac history presented to the ED after having sudden onset of resting chest pain and dyspnea at home the night prior to presentation. He had no radiation of pain or diaphoresis and felt better when he sat up having to sleep in his arm chair the night prior to admission. During the day the patient was feeling dizzy and did fall into the tub when going to the bathroom because of his lightheadedness. He denied diaphoresis then as well and had no loss of consciousness. He had no significant injury from his fall. Eventually his did talk him into coming to the ED and he was found to have elevated troponins over [address]-T changes on EKG. He was diagnosed as a non-STEMI and being on aspirin chronically was loaded with aspirin and Plavix as well as initiated on heparin infusion as per direction from [facility]. [facility] did accept the patient and he is on the waiting list for transfer. The patient overall was fairly active and unrestricted in his activity prior to this incident. He has been on Crestor for hyperlipidemia and also treatment for gout being on methotrexate with folic acid. He also has a history of PMR on low-dose methylprednisolone. He is on terazosin for prostate issues and also is treated for hypertension with valsartan and amlodipine. He is not on a beta- monico. He is a full code. Review of Systems Narrative: 13 point review of systems otherwise unrevealing or stable. PFSH All Active Problems Non-ST elevation ME (NSTEMI) (Acute) Medical History Carotid artery stenosis HLD (hyperlipidemia) HTN (hypertension) Mild carotid artery disease PAD (peripheral artery disease) Psoriatic arthritis Surgical History History of back surgery 2010 Hx of shoulder surgery Social History Smoking/Tobacco Use Status: Never Smoking risk assessment performed?: Yes Alcohol Intake: current Alcohol Intake frequency: holidays/special occasions only Alcohol type: beer Drug use: Never Substance use type: does not use Do you feel safe at home: Yes Do you feel safe in your relationship?: Yes Additional Social history: unable to assess privately Meds Allergies and Home Medications Allergies Allergy/AdvReac Type Severity Reaction Status Date / Time gemfibrozil [From Lopid] Allergy Verified 07/06/22 18:31 Penicillins Allergy rash in Verified 07/06/22 18:31 younger years oxycodone [From Percocet] AdvReac Nausea Verified 07/06/22 18:31 Home Medications Medication Instructions Recorded Confirmed Type allopurinol 100 mg tablet 100 mg PO DAILY 01/21/16 07/06/22 History amlodipine 10 mg tablet 10 mg PO DAILY 01/21/16 07/06/22 History aspirin 81 mg chewable tablet 81 mg PO DAILY 01/21/16 07/06/22 History (Aspirin Low-Strength) folic acid 1 mg tablet 1 mg PO DAILY 05/29/20 07/06/22 History gabapentin 300 mg capsule 300 mg PO QHS PRN 05/29/20 07/06/22 History methylprednisolone 4 mg tablet 6 mg PO DAILY 05/29/20 07/06/22 History rosuvastatin 5 mg tablet (Crestor) 5 mg PO DAILY 05/29/20 07/06/22 History albuterol sulfate 90 mcg/actuation 1 - 2 puff inhalation DIRECTED 03/02/22 07/06/22 History aerosol inhaler (ProAir HFA) PRN indomethacin 50 mg capsule 50 mg PO TID PRN 03/02/22 07/06/22 History methotrexate sodium 2.5 mg tablet 4 tab PO DIRECTED 03/02/22 07/06/22 History terazosin 5 mg capsule 1 cap PO HS 03/02/22 07/06/22 History acetaminophen 500 mg tablet 500 tab PO PRN PRN 07/06/22 07/06/22 History (Tylenol Extra Strength) Exam Narrative Exam Narrative: General: Patient appears appropriate for age, alert and oriented x3 and in no acute distress. He he is lean. HEENT: Normocephalic, eyes with pupils equal and react light symmetric, extraocular movement intact and sclera anicteric. Oropharynx with moist mucosa and fair dentition. Neck: Supple without JVD. Back: Slightly stooped posture without CVA tenderness. Lungs: Diffuse inspiratory crackles without focalizing more over the bases with fair aeration and normal expiratory phase without expiratory wheeze. No dullness to percussion. Heart: Regular rate and rhythm with 3/6 to 4/6 systolic murmur left sternal border, no gallops or rubs. Abdomen: Normal contour, soft and nontender to palpation with no palpable hepatosplenomegaly. Genitalia/rectal: Exam deferred. Extremity: Without clubbing, cyanosis or pitting edema with mild nonpitting yulisa a both lower extremities and fair capillary refill. All joints have fair range of motion. Skin: Darkly tanned over sun exposed areas with actinic changes, otherwise normal color, warm and dry. Neuro: Cranial nerves II through XII gross intact, no focalized motor deficits or tremor. Psych: Normal affect and mood. No abnormal thought processes. Remote and recent memory grossly intact. Results Imaging Imaging Studies: EXAM: ? CT CHEST PE CTA CLINICAL HISTORY: ? chest pain and dyspnea. TECHNIQUE:? Imaging Protocol:? Axial CT angiography was performed with multi- slice acquisition and multi-planar and/or 3D reconstructions. CONTRAST MATERIAL:? Intravenous: Omnipaque 350 contrast volume:100 mL COMPARISON:? CR XR CHEST 2V PA ? LATERAL from 12/14/2018 US US ABDOMEN from 12/25/2018 FINDINGS: The examination is limited due to patient motion artifact.? Tracheobronchial tree: Patent where visualized. Pulmonary parenchyma: No consolidation or dominant measurable mass. No architectural distortion. Pulmonary Arteries: No evidence of filling defect to suggest pulmonary emboli. Mediastinum and [place]: No dominant adenopathy or fluid collection.? The esophagus is unremarkable.? Small hiatal hernia. Visualized thyroid gland: Unremarkable.? Pleura: No effusion or pneumothorax. Heart: The heart is not dilated. Coronary artery calcification is present.? No pericardial effusion.? Aorta: Thoracic aorta non-dilated. No evidence of dissection. Atherosclerosis is present. Upper abdomen:? There is a 1.7 cm hypodense round lesion in the left lobe of the liver.? Soft tissues: Unremarkable.? Bones: Within normal limits for the patient's age. IMPRESSION: 1. No evidence of pulmonary embolism, thoracic aortic dissection or aneurysm.? 2. 1.7 cm hypodense lesion in the left lobe of the liver.? This is nonspecific on this examination.? Correlation with the an abdominal ultrasound or dedicated CT scan of the abdomen without and with contrast should be considered. Labs Result diagrams: 07/07/22 05:28 07/07/22 05:28 Labs: Laboratory Results - last 24 hr 07/06/22 07/06/22 07/06/22 14:38 14:38 15:52 WBC 6.74 RBC 4.47 Hgb 13.8 Hct 40.8 MCV 91 MCH 30.9 MCHC 33.8 RDW 14.5 H Plt Count 154 MPV 10.0 Immature Gran % 1.2 Neutrophils % 82.0 Lymphocytes % 4.2 Monocytes % 12.0 Eosinophils % 0.0 Basophils % 0.6 Nucleated RBC % 0.0 Absolute Neutrophils 5.53 Absolute Lymphocytes 0.28 L Absolute Monocytes 0.81 H Absolute Eosinophils 0.00 Absolute Basophils 0.04 PT 11.3 H INR 1.1 APTT 28.1 H Sodium 135 L Potassium 3.5 Chloride 100 Carbon Dioxide 23.0 Anion Gap 12.0 H BUN 16 Creatinine 1.3 Est GFR (CKD-EPI 2020) 57.65 Glucose 140 H Calcium 8.7 Magnesium 2.2 Total Bilirubin 0.6 AST 49 H ALT 44 Alkaline Phosphatase 87 Troponin I 4533 H* Total Protein 7.1 Albumin 3.8 Lipase 83 COVID-19 Source SARS-CoV-2 (PCR) 07/06/22 07/06/22 17:24 17:25 WBC RBC Hgb Hct MCV MCH MCHC RDW Plt Count MPV Immature Gran % Neutrophils % Lymphocytes % Monocytes % Eosinophils % Basophils % Nucleated RBC % Absolute Neutrophils Absolute Lymphocytes Absolute Monocytes Absolute Eosinophils Absolute Basophils PT INR APTT Sodium Potassium Chloride Carbon Dioxide Anion Gap BUN Creatinine Est GFR (CKD-EPI 2020) Glucose Calcium Magnesium Total Bilirubin AST ALT Alkaline Phosphatase Troponin I 4590 H* Total Protein Albumin Lipase COVID-19 Source Nasal/Nares SARS-CoV-2 (PCR) Negative Last Vital Signs Temp 36.6 C 07/06/22 14:12 Pulse 83 07/06/22 19:00 Resp 28 H 07/06/22 19:01 BP 134/61 07/06/22 19:00 Pulse Ox 93 07/06/22 19:01
[2022-07-06 21:11] LABS: TSH (W/Ref FT4) 0.58 uIU/mL (0.36-3.74)
[2022-07-06 21:21] LABS: Troponin I 5424 ng/L (<or=60)
[2022-07-06 21:43] LABS: PTT Activated 74.9 sec (21.0-27.5)
[2022-07-07] VITALS (137 sets, daily range): BP systolic 66–153; BP diastolic 20–87; PULSE 64–123; RESP 12–34; TEMP 36.5–37.2; O2SAT 85–98
--- NOTE | 2022-07-07 | DI.CT_ITS ---
Exam(s) CT HEAD WO EXAM: CT HEAD WO CLINICAL HISTORY: fall. TECHNIQUE: Imaging Protocol: Axial computed tomography images with coronal and sagittal reformatted images were created and reviewed COMPARISON: No exams were available for comparison FINDINGS: The examination is limited due to patient motion artifact. Ventricles and Extra axial spaces: Normal in size and morphology for the patient's age. Hemorrhage: None. Cerebral parenchyma: No evidence of an acute territorial infarct. There are areas of decreased atten uation in the white matter consistent with small vessel ischemic disease. Midline shift: None. Brainstem/Cerebellum: Normal. Calvarium: Normal. Visualized Paranasal sinuses/Mastoids: Clear. Soft Tissues: Unremarkable. IMPRESSION: No acute intracranial process. RADIATION DOSE DELIVERED: 824.48mGy.cm Total DLP DATA REPOSITORY: All CT scans at this facility are submitted to the National Radiology Data Registry (NRDR) Dose Index Registry (DIR) with the [employer] (ACR). RADIATION OPTIMIZATION: All CT scans at this facility use at least one of these dose optimization te chniques: automated exposure control; mA and/or kV adjustment per patient size (includes targeted exa ms where dose is matched to clinical indication); or iterative reconstruction.
--- NOTE | 2022-07-07 | DI.RAD_ITS ---
Exam(s) XR SHOULDER LT COMPLETE 2+V EXAM: XR SHOULDER LT COMPLETE 2+V CLINICAL HISTORY: fall, hematoma. TECHNIQUE: 2D digital imaging was performed of the left shoulder. Four images were obtained. AP, G rashey, and Y views were obtained. COMPARISON: No exams were available for comparison FINDINGS: BONES: No acute fracture is present. No bony destructive lesion is seen. JOINTS: No dislocation present. Mild degenerative changes are present. SOFT TISSUE: Normal. IMPRESSION: No acute fracture or dislocation. DATA REPOSITORY: RADIATION DOSE DELIVERED:
[2022-07-07 02:21] LABS: Troponin I 5485 ng/L (<or=60)
--- NOTE | 2022-07-07 02:23 | NUR.NOTE ---
Nursing Note: Critical value - Trop - 5275. notified.
[2022-07-07 04:28] LABS: PTT Activated 57.7 sec (21.0-27.5)
[2022-07-07 05:55] LABS: HCT 38.1 % (40.0-50.0); HGB 12.3 g/dL (13.5-17.5); MCH 29.6 pg (27.0-33.0); MCHC 32.3 % (32.0-36.0); MCV 92 fL (80-95); MPV 10.4 fL (8.0-11.0); Platelet Count 133 10^3/uL (130-400); RBC 4.15 10^6/uL (4.36-5.78); RDW 14.5 % (11.8-14.1); RDW-SD 48.9 fL; WBC 6.18 10^3/uL (4.4-10.8)
[2022-07-07] MEDS: Metoprolol 12.5 MG TAB PO ×3 (06:05→18:20)
[2022-07-07 06:12] LABS: ALT 50 U/L (16-63); AST 65 U/L (15-37); Albumin 3.4 g/dL (3.4-5.0); Alkaline Phosphatase 76 U/L (46-116); Anion Gap 9.7 mmol/L (3-11); BUN 17 mg/dL (7-18); Bilirubin, Total 0.6 mg/dL (0.2-1.0); CO2 24.3 mmol/L (21.0-32.0); Calcium 8.2 mg/dL (8.5-10.1); Chloride 102 mmol/L (98-107); Estimated GFR 78.98 (mL/min/1.73m2); Glucose 97 mg/dL (74-106); Potassium 3.4 mmol/L (3.5-5.1); Sodium 136 mmol/L (136-145); Total Protein 6.2 g/dL (6.4-8.2)
[2022-07-07 06:29] LABS: Troponin I 5588 ng/L (<or=60)
--- NOTE | 2022-07-07 07:00 | RT.EKG_ITS ---
APPROVED REPORT Exam: Resting ECG Reason for Exam: NSTEMI Patient Location: I HR:81 bpm ECG Measurements Heart Rate 81 AXIS WI 146 P 23 QRSd 134 QRS 45 QT 412 T 61 QTc 479 Conclusion Sinus rhythm...normal P axis, V-rate 50- 99 Atrial premature complexes in couplets...pair SV complexes w/ short R-R Nonspecific T abnormalities, anterior leads...T <-0.10mV, V2-V4
[2022-07-07] MEDS: methylPREDNISolone 4 MG TAB 6 MG PO (07:55)
[2022-07-07] MEDS: Famotidine 20 MG TAB PO ×2 (07:56→20:59)
[2022-07-07] MEDS: Aspirin 81 MG CHEW PO (07:56)
[2022-07-07] MEDS: Potassium Chloride 20 MEQ TABCR 40 MEQ PO (07:56)
[2022-07-07] MEDS: Folic Acid 1 MG TAB PO (07:56)
[2022-07-07] MEDS: Clopidogrel 75 MG TAB PO (07:56)
[2022-07-07 08:11] LABS: Lab Add On Test DONE
[2022-07-07 08:30] LABS: NT-proBNP 3136 pg/mL (<300)
[2022-07-07 08:45] LABS: Calculated LDL 41 mg/dL (<100); Cholesterol 116 mg/dL (<200); HDL Cholesterol 65 mg/dL (40-60); Triglyceride 51 mg/dL (<150)
--- NOTE | 2022-07-07 09:15 | PDOC.CMIN ---
<Shelia Greer - Last Filed: 07/07/22 09:15> - If Service Date Differs Date of service: 07/07/22 Time of Service: 09:15 Care Management Initial Assess REASON FOR HOSPITALIZATION:: NSTEMI PAST MEDICAL HISTORY/PAST SURGICAL HISTORY:: All Active Problems . Non-ST elevation OK (NSTEMI) (Acute). Medical History . Carotid artery stenosis. HLD (hyperlipidemia). HTN (hypertension). Mild carotid artery disease. PAD (peripheral artery disease). Psoriatic arthritis. Surgical History . History of back surgery. 2010. Hx of shoulder surgery PREVIOUS FUNCTIONAL STATUS/SOCIAL/FAMILY SUPPORTS:: Otoniel lives in [place], [place] with his Araceli. ADVANCE DIRECTIVES:: none on file Has patient been provided with info about the portal/API?: Yes Did the patient sign up for the portal?: Yes (previously) CODE STATUS:: Full Code INSURANCE COVERAGE / FINANCIAL ISSUES:: Medicare Advantage PRIMARY CARE PHYSICIAN:: Anu Thakkar POTENTIAL DISCHARGE NEEDS:: transfer to [facility] PATIENT/FAMILY EDUCATION NEEDS:: Review of discharge instructions, limitations, activity, follow up plan, Ask Me Three ANTICIPATED BARRIERS TO DISCHARGE:: bed availability at [facility] TRANSPORTATION:: to be determined by disposition PLAN:: Domenico has been accepted at [facility] Cardiology pending bed availability. It is likely he will need a cardiac catheterization. <Vera Izquierdo - Last Filed: 07/07/22 12:31> Care Management Initial Assess CURRENT FUNCTIONAL STATUS:: Domenico has been accepted at [facility] Cardiology pending bed availability. It is likely he will need a cardiac catheterization. CURRENT HOME/COMMUNITY SERVICES/EQUIPMENT:: None, currently.
--- NOTE | 2022-07-07 09:59 | W.PM.PROGNOT ---
Date of Service Date of service: 07/07/22 Time of Service: 09:59 Assessment and Plan Assessment and plan (1) Non-ST elevation [place] (NSTEMI): Start date: 07/06/22 Status: Acute Assessment and plan: Continue aspirin, plavix, heparin gtt. Continue cardiac monitoring. Continue to trend troponins. Hypoxia is due to CHF - diurese. Avoid nitrates given degree of on echo (prelim read). NPO after midnight for transfer to [facility] for a cardiac intervention. Accepting MD Dr Jackson. (2) Aortic stenosis: Status: Chronic Assessment and plan: Severe by preliminary echo read. Await official read. No nitrates For eval for an Intervention at [facility] tomorrow. (3) Acute CHF: Status: Acute Assessment and plan: Diurese. Suspect this is related to severiy of . (4) Near syncope: Status: Acute Assessment and plan: ?symptomatic aortic stenosis. As above. Continue cardiac monitoring. (5) Hypokalemia: Status: Acute Assessment and plan: Replete (6) HLD (hyperlipidemia): Assessment and plan: Continue atorvastatin (7) PAD (peripheral artery disease): Assessment and plan: Continue CATHI + statin. (8) Psoriatic arthritis: Assessment and plan: Continue methotrexate and methylprednisolone. (9) Closed head injury: Status: Acute Assessment and plan: Obtain CT head. (10) HTN (hypertension): (11) DVT prophylaxis: Status: Acute Assessment and plan: On therapeutic heparin gtt (12) Discharge planning issues: Status: Acute Assessment and plan: Full code Awaiting transfer to [facility] tomorrow. Accepting MD Dr Jackson. Total Critical Care Time 40 minutes. Subjective Subjective Interval history since last seen: Mr Pirce was put up to 5 L of O2 by MT because he was desaturating to 87%. He is saturating 88% now while laying flat on 5L. He endorsed dizziness when sitting up. Described a fall in setting of dizziness earlier this week - hit his head and shoulder. Nursing has noticed a hematoma over L shoulder. Denies chest pain, shortness of breath, nausea. No beds at [facility] until tomorrow. Accepting MD Dr Jackson. Exam Narrative Exam Narrative: General: Pleasant male who is comfortable in bed, A&Ox3, NAD HEENT: EOMI, MMM Heart: RRR, quiet MACARIO Lungs: CTAB Abdomen: soft, nontender, nondistended Extremities: no edema BLEs Objective Last Vital Signs Temp 36.8 C 07/07/22 04:18 Pulse 99 H 07/07/22 04:18 Resp 26 H 07/07/22 05:40 BP 111/57 L 07/07/22 04:18 Pulse Ox 88 L 07/07/22 05:40 Laboratory Results - last 24 hr 07/06/22 07/06/22 07/06/22 14:38 14:38 15:52 WBC 6.74 RBC 4.47 Hgb 13.8 Hct 40.8 MCV 91 MCH 30.9 MCHC 33.8 RDW 14.5 H Plt Count 154 MPV 10.0 Immature Gran % 1.2 Neutrophils % 82.0 Lymphocytes % 4.2 Monocytes % 12.0 Eosinophils % 0.0 Basophils % 0.6 Nucleated RBC % 0.0 Absolute Neutrophils 5.53 Absolute Lymphocytes 0.28 L Absolute Monocytes 0.81 H Absolute Eosinophils 0.00 Absolute Basophils 0.04 PT 11.3 H INR 1.1 APTT 28.1 H Sodium 135 L Potassium 3.5 Chloride 100 Carbon Dioxide 23.0 Anion Gap 12.0 H BUN 16 Creatinine 1.3 Est GFR (CKD-EPI 2020) 57.65 Glucose 140 H Calcium 8.7 Magnesium 2.2 Total Bilirubin 0.6 AST 49 H ALT 44 Alkaline Phosphatase 87 Troponin I 4533 H* NT-Pro-B Natriuret Pep Total Protein 7.1 Albumin 3.8 Triglycerides Total Cholesterol LDL Cholesterol, Calc HDL Cholesterol Lipase 83 TSH COVID-19 Source SARS-CoV-2 (PCR) Add-On Test Request 07/06/22 07/06/22 07/06/22 17:24 17:25 20:25 WBC RBC Hgb Hct MCV MCH MCHC RDW Plt Count MPV Immature Gran % Neutrophils % Lymphocytes % Monocytes % Eosinophils % Basophils % Nucleated RBC % Absolute Neutrophils Absolute Lymphocytes Absolute Monocytes Absolute Eosinophils Absolute Basophils PT INR APTT Sodium Potassium Chloride Carbon Dioxide Anion Gap BUN Creatinine Est GFR (CKD-EPI 2020) Glucose Calcium Magnesium Total Bilirubin AST ALT Alkaline Phosphatase Troponin I 4590 H* 5424 H* NT-Pro-B Natriuret Pep Total Protein Albumin Triglycerides Total Cholesterol LDL Cholesterol, Calc HDL Cholesterol Lipase TSH 0.58 COVID-19 Source Nasal/Nares SARS-CoV-2 (PCR) Negative Add-On Test Request 07/06/22 07/07/22 07/07/22 21:25 01:58 04:00 WBC RBC Hgb Hct MCV MCH MCHC RDW Plt Count MPV Immature Gran % Neutrophils % Lymphocytes % Monocytes % Eosinophils % Basophils % Nucleated RBC % Absolute Neutrophils Absolute Lymphocytes Absolute Monocytes Absolute Eosinophils Absolute Basophils PT INR APTT 74.9 H 57.7 H Sodium Potassium Chloride Carbon Dioxide Anion Gap BUN Creatinine Est GFR (CKD-EPI 2020) Glucose Calcium Magnesium Total Bilirubin AST ALT Alkaline Phosphatase Troponin I 5485 H* NT-Pro-B Natriuret Pep Total Protein Albumin Triglycerides Total Cholesterol LDL Cholesterol, Calc HDL Cholesterol Lipase TSH COVID-19 Source SARS-CoV-2 (PCR) Add-On Test Request 07/07/22 07/07/22 07/07/22 05:28 05:28 05:28 WBC 6.18 RBC 4.15 L Hgb 12.3 L Hct 38.1 L MCV 92 MCH 29.6 MCHC 32.3 RDW 14.5 H Plt Count 133 MPV 10.4 Immature Gran % Neutrophils % Lymphocytes % Monocytes % Eosinophils % Basophils % Nucleated RBC % Absolute Neutrophils Absolute Lymphocytes Absolute Monocytes Absolute Eosinophils Absolute Basophils PT INR APTT Sodium 136 Potassium 3.4 L Chloride 102 Carbon Dioxide 24.3 Anion Gap 9.7 BUN 17 Creatinine 1.0 Est GFR (CKD-EPI 2020) 78.98 Glucose 97 Calcium 8.2 L Magnesium 2.0 Total Bilirubin 0.6 AST 65 H ALT 50 Alkaline Phosphatase 76 Troponin I 5588 H* NT-Pro-B Natriuret Pep Total Protein 6.2 L Albumin 3.4 Triglycerides Total Cholesterol LDL Cholesterol, Calc HDL Cholesterol Lipase TSH COVID-19 Source SARS-CoV-2 (PCR) Add-On Test Request 07/07/22 07/07/22 05:28 05:28 WBC RBC Hgb Hct MCV MCH MCHC RDW Plt Count MPV Immature Gran % Neutrophils % Lymphocytes % Monocytes % Eosinophils % Basophils % Nucleated RBC % Absolute Neutrophils Absolute Lymphocytes Absolute Monocytes Absolute Eosinophils Absolute Basophils PT INR APTT Sodium Potassium Chloride Carbon Dioxide Anion Gap BUN Creatinine Est GFR (CKD-EPI 2020) Glucose Calcium Magnesium Total Bilirubin AST ALT Alkaline Phosphatase Troponin I NT-Pro-B Natriuret Pep 3136 H Total Protein Albumin Triglycerides 51 Total Cholesterol 116 LDL Cholesterol, Calc 41 HDL Cholesterol 65 Lipase TSH COVID-19 Source SARS-CoV-2 (PCR) Add-On Test Request DONE Multi-Disciplinary Checklist Lines/Tubes CENTRAL LINE: no ARTERIAL LINE: no GARCIA: yes, Garcia Day#: 0 Note: inserted today ENDOTRACHEAL TUBE: no ICU Maintenance GLUCOSE 140-180mg/dL: no, Reason/Intervention: not diabetic NUTRITION AT GOAL: yes PRESSURE ULCER: no RESTRAINTS: no ANTIBIOTICS(if yes, consider Stewardship): No Social Issues FAMILY UPDATED: no, Reason/Intervention: Patient is able to update family PT/OT: no, Reason/Intervention: Not clinically appropriate GOALS/DISPOSITION/CONCESSION WORKER: yes CODE STATUS: Full Prophylaxis DVT PROPHYLAXIS: yes GI PROPHYLAXIS: yes, Indication: NPO after midnight.
[2022-07-07] MEDS: Furosemide 20 MG/2 ML VIAL IVP (10:24)
[2022-07-07] MEDS: Lidocaine 2% Jelly 6 ML SYR (10:24)
[2022-07-07] MEDS: Normal Saline Flush 10 ML SYR IVP (10:25)
[2022-07-07 10:33] LABS: Troponin I 4843 ng/L (<or=60)
[2022-07-07 12:36] LABS: PTT Activated 67.6 sec (21.0-27.5)
--- NOTE | 2022-07-07 12:46 | PDOC.CMDIS ---
- If Service Date Differs Date of service: 07/07/22 Time of Service: 12:46 LACE Index Scoring Tool - Questions: Length of Stay (in days): 3 Acuity (Admit via E.D.?): Yes Comorbidities: Diabetes w/o Complication E.D. Visits: 5 - Answers: Total Score: 11 Risk of Readmission: High Risk Care Management Discharge Reason for Hospitalization: NSTEMI Discharge Plan: Alycia will return home when medically cleared by provider. Anticipate she will have resumption of community based supports including VNA RN and O2 as well as PCP follow up. She will transport via private vehicle with her daughter. Patient/Family Education Needs: Review discharge instructions, discuss Ask Me Three. Services Needed at Discharge: Home Health Care Services (Resume RN)
[2022-07-07] MEDS: Allopurinol 100 MG TAB PO (14:12)
--- NOTE | 2022-07-07 16:12 | PHA.REVIEW2 ---
Pharmacy Admission Review - Admission Clinical Review (Last Reviewed 07/06/22 @ 19:36 by Teo Robles) Discharge planning issues (Acute) DVT prophylaxis (Acute) Closed head injury (Acute) Near syncope (Acute) Hypokalemia (Acute) Acute CHF (Acute) Non-ST elevation [place] (NSTEMI) (Acute) gemfibrozil [From Lopid] Allergy (Verified 07/06/22 18:31) Penicillins Allergy (Verified 07/06/22 18:31) rash in younger years oxycodone [From Percocet] Adverse Reaction (Verified 07/06/22 18:31) Nausea Resuscitation Status Full Code Height 5 ft 9 in Weight 84.7 kg - Renal Dosing Renal Dosing: BUN 17 mg/dL (7-18) 07/07/22 05:28 Creatinine 1.0 mg/dL (0.70-1.30) 07/07/22 05:28 Medications needing adjustments: Reviewed List of meds needing interventions: eCrCl 77 ml/min - Anticoagulation Anticoagulation: Hgb 12.3 g/dL (13.5-17.5) L 07/07/22 05:28 Hct 38.1 % (40.0-50.0) L 07/07/22 05:28 Plt Count 133 10^3/uL (130-400) 07/07/22 05:28 INR 1.1 (0.9-1.1) 07/06/22 15:52 Creatinine 1.0 mg/dL (0.70-1.30) 07/07/22 05:28 Therapeutic Anticoagulation: Reviewed Medications: Heparin - Opiate Usage Evaluate Pain Scale/Pains Meds: N/A Scheduled Bowel Reg ordered if on Opiates?: Yes - Relevant Labs Sodium 136 mmol/L (136-145) 07/07/22 05:28 Potassium 3.4 mmol/L (3.5-5.1) L 07/07/22 05:28 Chloride 102 mmol/L (98-107) 07/07/22 05:28 Magnesium 2.0 mg/dL (1.8-2.4) 07/07/22 05:28 Electrolytes, C-Reactive P, ESR: Reviewed - DM Control DM Control: Glucose 97 mg/dL (74-106) 07/07/22 05:28 DM Control: N/A - Cardiac Review Cardiac Review: Troponin I 4843 ng/L (<or=60) H* 07/07/22 10:05 NT-Pro-B Natriuret Pep 3136 pg/mL (<300) H 07/07/22 05:28 BP, HR, EF%: Reviewed List meds needing interventions: metoprolol 12.5 q6h ashlie - Qtc Review QTc: Reviewed If Elevated, List meds needing intervention: QTc 489 on admission - IV to PO Switch IV Medications: Reviewed - Home Meds Home Med List reviewed: Intervened Relevent Home Meds Not ordered & why?: updated based on external rx hx; not ordered: amlodipine, cilostazol, MTX; high intensity atorvastatin replaces home rosuvastatin - Current meds Current Medication Order Review: Reviewed
--- NOTE | 2022-07-07 18:30 | RT.EKG_ITS ---
APPROVED REPORT Exam: Resting ECG Reason for Exam: Syncope Patient Location: I HR:82 bpm ECG Measurements Heart Rate 82 AXIS MS 134 P 44 QRSd 86 QRS 43 QT 413 T 42 QTc 483 Conclusion Sinus rhythm...normal P axis, V-rate 50- 99 Atrial premature complex...SV complex w/ short R-R interval
--- NOTE | 2022-07-07 18:47 | W.PM.PROGNOT ---
Date of Service Date of service: 07/07/22 Time of Service: 18:48 Subjective Subjective Interval history since last seen: Staff emergency called overhead. The patient was having diarrhea on the commode when he was noted to become unresponsive. No arrhythmias on telemetry. He is back to his baseline by the time I see him in bed. EKG and troponins are being obtained. I suspect this was the patient's intoleranace of valsalva due to his critical . He was made bedrest. EKG and troponins are being obtained. HE did not have arrhythmic events during this. Objective Last Vital Signs Temp 37.2 C 07/07/22 16:00 Pulse 77 07/07/22 14:00 Resp 26 H 07/07/22 14:01 BP 130/44 L 07/07/22 14:00 Pulse Ox 98 07/07/22 16:00 Laboratory Results - last 24 hr 07/06/22 07/06/22 07/07/22 20:25 21:25 01:58 WBC RBC Hgb Hct MCV MCH MCHC RDW Plt Count MPV APTT 74.9 H Sodium Potassium Chloride Carbon Dioxide Anion Gap BUN Creatinine Est GFR (CKD-EPI 2020) Glucose Calcium Magnesium Total Bilirubin AST ALT Alkaline Phosphatase Troponin I 5424 H* 5485 H* NT-Pro-B Natriuret Pep Total Protein Albumin Triglycerides Total Cholesterol LDL Cholesterol, Calc HDL Cholesterol TSH 0.58 Add-On Test Request 07/07/22 07/07/22 07/07/22 04:00 05:28 05:28 WBC RBC Hgb Hct MCV MCH MCHC RDW Plt Count MPV APTT 57.7 H Sodium 136 Potassium 3.4 L Chloride 102 Carbon Dioxide 24.3 Anion Gap 9.7 BUN 17 Creatinine 1.0 Est GFR (CKD-EPI 2020) 78.98 Glucose 97 Calcium 8.2 L Magnesium 2.0 Total Bilirubin 0.6 AST 65 H ALT 50 Alkaline Phosphatase 76 Troponin I 5588 H* NT-Pro-B Natriuret Pep Total Protein 6.2 L Albumin 3.4 Triglycerides Total Cholesterol LDL Cholesterol, Calc HDL Cholesterol TSH Add-On Test Request 07/07/22 07/07/22 07/07/22 05:28 05:28 05:28 WBC 6.18 RBC 4.15 L Hgb 12.3 L Hct 38.1 L MCV 92 MCH 29.6 MCHC 32.3 RDW 14.5 H Plt Count 133 MPV 10.4 APTT Sodium Potassium Chloride Carbon Dioxide Anion Gap BUN Creatinine Est GFR (CKD-EPI 2020) Glucose Calcium Magnesium Total Bilirubin AST ALT Alkaline Phosphatase Troponin I NT-Pro-B Natriuret Pep 3136 H Total Protein Albumin Triglycerides 51 Total Cholesterol 116 LDL Cholesterol, Calc 41 HDL Cholesterol 65 TSH Add-On Test Request DONE 07/07/22 07/07/22 10:05 12:00 WBC RBC Hgb Hct MCV MCH MCHC RDW Plt Count MPV APTT 67.6 H Sodium Potassium Chloride Carbon Dioxide Anion Gap BUN Creatinine Est GFR (CKD-EPI 2020) Glucose Calcium Magnesium Total Bilirubin AST ALT Alkaline Phosphatase Troponin I 4843 H* NT-Pro-B Natriuret Pep Total Protein Albumin Triglycerides Total Cholesterol LDL Cholesterol, Calc HDL Cholesterol TSH Add-On Test Request
[2022-07-07 19:31] LABS: Troponin I 3935 ng/L (<or=60)
[2022-07-07] MEDS: Atorvastatin 40 MG TAB 80 MG PO (20:59)
[2022-07-07 22:37] LABS: Troponin I 3505 ng/L (<or=60)
[2022-07-08] VITALS: BP 85/51; PULSE 104; PULSE 105; RESP 29
[2022-07-08 00:01] VITALS: PULSE 101; RESP 26
[2022-07-08 00:30] VITALS: BP 81/22; PULSE 101; PULSE 98; RESP 33
[2022-07-08] MEDS: Normal Saline 500 ML IV (00:32)
[2022-07-08 00:55] VITALS: BP 81/22; PULSE 100; RESP 31; TEMP 36; O2SAT 93
--- NOTE | 2022-07-08 05:09 | NUR.NOTE ---
Farooq Mcneil RN Documentation of PRESSER ALL AROUND CODE BLUE NOTE: While in a med surg room I heard emergency broadcast to ICU 220. Rushed over to assist. 0400: code called. 0405 my arrival to the room compressions in progress. 0406 1 amp epi 0407 1L Normal Saline Bolus started 0409 AED pads placed 0410 AED Rythm pulse check compressions resumed. 0412 2nd amp epi 0416 intubated pulse check compressions resumed 0418 4g IV mag sulfate initiated. & Calcium gluconate given 0421 atropine given CPR in progress 0423 3rd amp epi 0425 4th amp epi 0428 pulse check 0430 pulse check 2nd atropine given 0432 pulse check compressions resumed 0434 code called off. Myself in room Recording Farooq Foreman EMT at bedside RT Amanda Butler RN or MD by the last name of [facility] nurse? also assisted. 04 Nursing Note:
--- NOTE | 2022-07-08 05:24 | EXPE_ITS ---
Date of service: 07/08/22 Time of Service: 04:50 Discharge Plan Disposition Patient Disposition: Discharge Details Reason For Visit: NSTEMI Admit Date/Time: 07/06/22 19:27 Admit Provider: Teo Robles Attending Provider: Teo Robles Primary Care Provider: Anu Thakkar V Discharge Data Cause of : NSTEMI, initial episode of care Discharge Date/Time-TO BE ENTERED AT DEPARTURE: 07/08/22 05:34 Discharge Sum: Prov Provider Primary care physician: Anu Thakkar V Admitting clinician: Teo Robles Consults: None Pronouncing clinician: Teo Robles Discharge Sum: Diag PCOD Cause of : NSTEMI, initial episode of care Contributing Factors (1) Non-ST elevation [place] (NSTEMI): Contributing factors: CAD, Severe (2) Aortic stenosis: (3) Acute CHF: (4) Near syncope: (5) Hypokalemia: (6) HLD (hyperlipidemia): (7) PAD (peripheral artery disease): (8) Psoriatic arthritis: (9) Closed head injury: (10) HTN (hypertension): (11) DVT prophylaxis: (12) Discharge planning issues: Discharge Sum: Summary Date and Time Admission Date: 07/06/2212/13/22 19:27 Date of : 07/08/22 Time of : 04:34 Summary Details: This is 76-year-old gentleman who was admitted with a non-STEMI and initiated on IV heparin with loading dose of Plavix and aspirin at the time of admission. He was pain-free throughout his hospital stay but began to have episodes of hypotension and hypoxemia especially when out of bed having loose bowel movements. He was at bedrest the evening prior to his but began having low blood pressure and hypoxemia with poor pulse oximeter readings prompting 2 small IV fluid boluses of 250 cc normal saline which helped his blood pressure with his MAP increase. About 1 hour prior to his the patient began to have low blood pressures with systolics down below 70 and hypoxemia with poor readings as well as altered mental status. Arterial blood gas and chest x-ray with EKG was ordered with radiating pressor agents when the patient coded with no pulse and CPR begun. This was around 04:00. ACLS protocol was followed with patient having adequate CPR and epinephrine which was given at least 4 times with calcium gluconate and magnesium when he was having pulseless electrical activity after efforts of CPR and epinephrine. Shock was not indicated. With continued CPR and pulseless electrical activity which became bradycardic atropine x2 was not effective during resuscitation. Dr. Andrews did perform bedside echocardiogram which confirmed essentially no ventricular function with electrical activity showing narrow complex and junctional rhythm which was slowing once again without CPR. During CPR adequate photography and palpable pulses revealed excellent circulation during the code. But patient not responding to repeated interventions, he was pronounced at 04: 34. I did call his Araceli to inform her of his change in status and unsuccessful CPR and code. She was to call her daughter and come and to the hospital. [place] [facility] [place] It appears the patient was decompensated with severe and poor perfusion which may have prompted his non-STEMI but then cardiac decompensation secondary to poor perfusion of the coronary artreries most likely was a cause of his nonresponse to resuscitative measures. His lab did not show any worsening troponins or new ischemia after his episodes earlier in the evening. 45 minutes was spent at bedside during CODE BLUE with full attention to patient's resuscitation and communicating with other code team members as well as Dr. Andrews who did intubation and helped with decision-making with full attention to patient assessing vital signs, lab and vehicle monitor technician during resuscitation. This was critical care time with CODE BLUE activity (see note and hospital course). Additional Data Confirmation of as documented by pronouncing clinician: no pulse, no respirations and no heart sounds Family: contacted Attending/PCP notified?: No Attending Physician: Teo Ch Was code activated?: Yes Autopsy requested?: No claims examiner notified?: No Organ bank notified?: Yes Advance directives: Yes Hospice patient?: No
--- NOTE | 2022-07-08 05:39 | NUR.NOTE ---
0000 Pt with labile blood pressure and somewhat tachypneic. MD aware. NPO after midnight for probable transfer to [facility] in AM. Dr Biswas ordered 500 cc NS bolus. Given with some improvement in BP 0200 Pt becoming increasingly restless. Extremities becoming mottled. Hands and feet cold to touch. BP starting to trend down again. [address] biswas about Pt's increase in HR, decrease in BP,and tachypnea. Resp therapist in with pt to try different modes of oxgen delivery to try to improve oxygenation. Pt deteriorating, attempted again to page Dr biswas.[id number] Dr Biswas paged again with no response.[id number] Dr biswas answered the page and came directly to ICU 0400 code called when pt became unresponsive to verbal stimulli and deep sternal rub. See code note. Pt was coded for 34 minutes with no ROSC. code completed at 0434.
--- NOTE | 2022-07-08 06:19 | NUR.NOTE ---
0625 Spoke with organ donor bank and body will be held in the more. [place] [facility] [place].
--- NOTE | 2022-07-08 07:11 | W.ED.EVENT ---
Date of service: 07/08/22 Time of Service: 04:30 Event Note: Responded to a CODE BLUE on the floor. Dr. Robles at bedside. Please see his note for further details. ACLS protocol initiated. See code sheet for details. Patient was intubated with ET tube with tube visualized passing through cords and equal breath sounds bilaterally with BVM. Unable to obtain ROSC after 30 minutes of attempted CPR. Bedside ultrasound performed by me which showed no effective cardiac contractility or wall motion. Time Spent with Patient Time spent in critical care(minutes): I spent 30 minutes of critical care time with this patient. This does not include time spent on separately reported billable procedures. Time Spent Included: Time at immediate bedside
--- NOTE | 2022-07-08 07:19 | W.ED.PROC ---
Date of service: 07/08/22 Time of Service: 04:30 Procedures Intubation Time out performed: Yes sedative: none Laryngoscope: Brandon ET Tube Size: 7 Tube Secured Depth (cm): 24 Tube Secured Location: lips Tube Placement Confirmation: visualized tube passing through cords, equal breath sounds bilaterally and no breath sounds over epigastrum Patient Tolerated Procedure: no complications Intubation Complications: none
== END 2022-07-08 04:34 | disposition expired ==
LOC: ER 23:52 → ICU 07-07 03:47
PROVIDERS: Internal Medicine; Admitting Provider Family Medicine; Emergency Provider Emergency Medicine; PCP Family Medicine; Visit Provider Family Medicine
DX: I21.4 Non-ST elevation (NSTEMI) myocardial infarction (principal); E78.5 Hyperlipidemia, unspecified; I73.9 Peripheral vascular disease, unspecified; L40.50 Arthropathic psoriasis, unspecified; I35.0 Nonrheumatic aortic (valve) stenosis; I65.29 Occlusion and stenosis of unspecified carotid artery; W19.XXXA Unspecified fall, initial encounter; M10.9 Gout, unspecified; M35.3 Polymyalgia rheumatica; Z79.52 Long term (current) use of systemic steroids; R09.02 Hypoxemia; I11.0 Hypertensive heart disease with heart failure; I50.9 Heart failure, unspecified; S40.012A Contusion of left shoulder, initial encounter; R19.7 Diarrhea, unspecified; I25.10 Atherosclerotic heart disease of native coronary artery without angina pectoris; R55 Syncope and collapse; E87.6 Hypokalemia; S09.90XA Unspecified injury of head, initial encounter
CPT/HCPCS: 31500; 36415; 71275; 80048; 80053; 80061; 83690; 85027; 87635; 93005; 99285; 70450; 73030; 83036; 83735; 83880; 84443; 84484; 85025; 85610; 85730; 93010; 93306; 99223; 99239; 99291; J1941; J3490; J7509